=== PATIENT | female | born 1960 | race Caucasian/White ===

== ENCOUNTER 2021-08-22 11:12 | Emergency (ER) | payer OTHER, MEDICAID, SELFPAY ==
[2021-08-22] VITALS (9 sets, daily range): BP systolic 95–128; BP diastolic 62–77; PULSE 74–92; RESP 14; TEMP 36.5; O2SAT 97–100; BMI 24.7
[2021-08-22 11:40] LABS: Add Manual Diff / Slide Review NO; Basophils Absolute Auto 0 /uL (0-100); Basophils Percent Auto 0.2 % (0-2); Eosinophils Absolute Auto 0 /uL (0-450); Eosinophils Percent Auto 1.3 % (2-4); Hematocrit 26.8 % (36-46); Hemoglobin 9.1 g/dL (12.0-16.0); Lymphocytes Absolute Auto 600 /uL (1100-4500); Mean Corpuscular HGB Conc 33.9 % (30-36); Mean Corpuscular Hemoglobin 28.8 PG (26-34); Monocytes Absolute Auto 300 /uL (0-900); Monocytes Percent Auto 12.4 % (3-14); Neutrophils Absolute Auto 1400 /uL (1500-7000); Neutrophils Percent Auto 61.1 % (50-75); Platelet Count 149 X10^3/uL (150-400); Red Blood Cell Count 3.16 X10^6/uL (4.0-5.2); Red Cell Distribution Width 14.8 % (11.6-14.8); White Blood Cell Count 2.3 X10^3/uL (4.5-11.0)
[2021-08-22 11:45] LABS: INR 1.2 (0.9-1.3); Prothrombin Time 13.1 SECONDS (10.1-12.7)
[2021-08-22 11:48] LABS: PTT Partial Thromboplastin Tim 30 SECONDS (26.4-36.2)
--- NOTE | 2021-08-22 11:49 | PC.NURSE ---
Pt with h/o Glioblastoma and recent craniotomy at [facility]. has been going through oral chemo and had blood transfusion yesterday at [facility]. states the inside of her anus feels ulcerated and is bleeding.
[2021-08-22 11:55] LABS: Alanine Aminotransferase 29 IU/L (<35); Albumin 4.1 g/dL (3.5-5.0); Albumin Globulin Ratio 1.3 (1.0-2.8); Alkaline Phosphatase 67 U/L (38-126); Aspartate Aminotransferase 24 IU/L (14-36); Bilirubin Total 0.7 mg/dL (0.2-1.3); Blood Urea Nitrogen 14 mg/dL (7-17); Calcium 9.3 mg/dL (8.4-10.2); Carbon Dioxide 27 mmol/L (22-32); Chloride 108 mmol/L (98-107); Estimated Glomerular Filt Rate > 60.0 mL/min (>60); Globulin 3.1 g/dL (1.7-4.1); Glucose 102 mg/dL (80-110); HEMOLYSIS < 15 (0-50); Potassium 4.3 mmol/L (3.4-5.1); Sodium 140 mmol/L (137-145); Total Protein 7.2 g/dL (6.3-8.2)
--- NOTE | 2021-08-22 12:34 | ED_ITS ---
HPI - GI Bleed <Devin Sánchez PA-C - Last Filed: 08/22/21 14:25> General Chief complaint: GI Bleed Stated complaint: RECTAL BLEEDING POST CA TREATMENT & BLOOD TRANSFUS Time Seen by Provider: 08/22/21 12:01 Source: patient Mode of arrival: Ambulatory Limitations: no limitations History of Present Illness HPI Narrative: 61-year-old female with a history of AFib, glioblastoma presents to the ED with 1 day of rectal bleeding. Patient states that she had a resection for the glioblastoma in January 2021, followed by oral chemo and radiation that ended in the beginning of May. Patient endorses ongoing constipation over the last few months, sporadic rectal bleeds. Patient has been advised by her oncologist to take stool softeners, fiber to avoid constipation and prevent bleeds. Patient also states that she has been anemic since her cancer treatments for which she has received a few transfusions. The last transfusion she got was yesterday at [facility] due to a 6.4 hemoglobi n, she was transfused with 2 units. Patient denies fever, chills, shortness of breath, cough, nausea, vomiting, abdominal pain, lightheadedness, dizziness, syncope. Patient also endorses some chest tightness that she started feeling yesterday. Patient describes the chest pain as substernal, feeling of tightness in pressure, some burning. Patient has a prior history of GERD, but says this burning sensation is different than what she has felt in the past. Patient does not take blood thinners for her AFib, takes aspirin 81 daily. Related Data Home Medications Medication Instructions Recorded Confirmed ASPIRIN (Aspir-Low) 81 mg PO Q DAY #0 10/25/12 08/22/21 hydrochlorothiazide 25 mg tablet 25 mg PO QDAY #0 10/25/12 DILTIAZEM HCL (Diltzac ER) 120 mg PO QDAY #0 12/08/12 08/22/21 Previous Rx's Medication Instructions Recorded phenazopyridine 100 mg tablet 100 mg PO TID #14 12/08/12 nitrofurantoin 100 mg PO BIDCC #14 01/22/13 monohydrate/macrocrystals 100 mg capsule (Macrobid) Allergies Allergy/AdvReac Type Severity Reaction Status Date / Time codeine Allergy Verified 08/22/21 11:22 Review of Systems <Devin Sánchez PA-C - Last Filed: 08/22/21 14:25> Constitutional Constitutional: Denies chills, Denies fatigue, Denies fever(s), Denies frequent falls, Denies lethargy and Denies weakness Eyes Eyes: Denies change in vision, Denies eye discharge, Denies irritation and Denies loss of vision ENT Ears, Nose, Mouth, and Throat: Denies change in voice, Denies dizziness, Denies neck pain, Denies sore throat and Denies throat swelling Cardiovascular Cardiovascular: Reports chest pain, Denies irregular heart rhythm, Denies lightheadedness, Denies palpitations, Denies dyspnea, Denies dyspnea on exertion and Denies orthopnea Respiratory Respiratory: Denies cough, Denies dyspnea, Denies dyspnea on exertion and Denies wheezing Gastrointestinal Gastrointestinal: Denies abdominal pain, Reports hematochezia, Denies change in bowel habits, Reports constipation, Denies diarrhea, Denies nausea and Denies vomiting Musculoskeletal Musculoskeletal: Denies neck pain and Denies numbness Integumentary/Breasts Skin/Breast: Denies pruritus, Denies erythema, Denies rash and Denies wounds Neurologic Neurologic: Denies behavioral changes, Denies confusion, Denies dizziness, Denies frequent falls, Denies loss of vision, Denies numbness and Denies weakness Psychiatric Psychiatric: Denies anxiety, Denies behavioral changes, Denies confusion, Denies depression, Denies homicidal ideation and Denies suicidal ideation Endocrine Endocrine: Denies fatigue, Denies flushing and Denies palpitations Hematologic/Lymphatic Hematologic/Lymphatic: Denies easy bruising Allergic/Immunologic Allergic/Immunologic: Denies urticaria, Denies throat swelling and Denies wheezing Patient History <Devin Sánchez PA-C - Last Filed: 08/22/21 14:25> Social History Smoking Status: Unknown if ever smoked Smoking Status: Unknown if ever smoked alcohol intake frequency: holidays/special occasions only Substance Use Type: does not use Exam <Devin Sánchez PA-C - Last Filed: 08/22/21 14:25> Initial Vital Signs Initial Vital Signs: Vital Signs Temperature 97.7 F 08/22/21 11:17 Pulse Rate 83 08/22/21 11:17 Respiratory Rate 14 08/22/21 11:17 Blood Pressure 117/71 08/22/21 11:17 Pulse Oximetry 97 08/22/21 11:17 Const General: cooperative [facility] Head: normocephalic and atraumatic Ears: external ears normal and TM's normal bilaterally Nose: external nose normal and No nasal discharge Face and sinus: sinuses nontender, face symmetric, no sinus tenderness and No dry mucous membranes Mouth: oral mucosae normal and moist mucous membranes Teeth and gingiva: dentition normal Throat: tonsils normal and uvula midline Eyes General: appearance normal, both eyes and all related structures Eyelids: eyelids normal Conjunctivae: conjunctivae normal Sclera: sclerae normal Pupils: PERRL EOM: EOM intact bilaterally Neck Neck: normal visual inspection, trachea midline, No lymphadenopathy, No midline deformity and No JVD Lymphatic: No lymphedema Chest Chest: normal inspection of the chest Resp Effort & Inspection: normal respiratory effort, able to speak in complete sentences, no respiratory distress and no use of accessory muscles Auscultation: clear to auscultation bilaterally, no rales, no rhonchi and no wheezes Cardio Rate: regular rate Rhythm: regular rhythm Heart Sounds: no click, no gallops, no murmurs and no rubs Pulses: normal peripheral pulses GI Inspection: non-distended Palpation: soft, no hepatosplenomegaly, No guarding, No pulsatile mass and No tender Auscultation: normal bowel sounds Rectal Exam: hemorrhoids Other: Rectal exam deferred due to patient's immunocompromised status. External visual exam shows external hemorrhoids. No gross signs of bleeding. Abdomen soft, nondistended, nontender to palpation Back/Spine/Pelvis Back: No CVA tenderness Cervical Spine: cervical ROM normal and No pain with cervical ROM Thoracic/Lumbar Spine: thoracic and lumbar spine normal to inspection Skin General: no rashes or lesions noted, No jaundice and No petechiae Neuro General: patient alert, patient oriented x3, gait normal and no focal motor deficits Speech: speech normal Extrem General: full ROM, no clubbing, cyanosis or edema, no pedal edema and no calf tenderness Psych Appearance: well kempt Mental Status: mental status grossly normal Attitude: cooperative Thought Content: normal and suicidality Judgment: judgment good <Ronnie Harrison DO - Last Filed: 08/22/21 14:49> Initial Vital Signs Initial Vital Signs: Vital Signs Temperature 97.7 F 09/21/21 11:17 Pulse Rate 83 08/22/21 11:17 Respiratory Rate 14 08/22/21 11:17 Blood Pressure 117/71 08/22/21 11:17 Pulse Oximetry 97 08/22/21 11:17 Course <Devin Sánchez PA-C - Last Filed: 08/22/21 14:25> Course Course Narrative: H/H 9.1/26.8, which appears stable and consistent with 2 units that the patient was transfused with yesterday. Trop negative, ACS workup negative. Most likely cause of rectal bleeding is the patient has hemorrhoids which were visible on physical exam. Will discharge patient home with ED return precautions, GI follow-up, laxatives for prevention of constipation. Orders Ordered: ED Orders 08/22/21 11:22 EKG-12 Lead Stat 08/22/21 11:25 Complete Blood Count AUTO DIFF Stat Comprehensive Metabolic Panel Stat Partial Thromboplastin Time Stat Prothrombin Time INR Stat Troponin & CK Cardiac Panel Stat Type and Screen Stat 08/22/21 13:00 XR chest 1V Stat Discontinued Medications Al Hydrox/Mg Hydrox/Simethicone (Mag Hydrox/Alum/Simeth 30 Ml Udc) 30 ml PO NOW ONE Stop: 08/22/21 13:39 Last Admin: 08/22/21 13:40 Dose: 30 ml Documented by: ROSHAN Al Hydrox/Mg Hydrox/Simethicone 20 ml/ Lidocaine HCl 15 ml 0 ml PO NOW ONE Stop: 08/22/21 13:13 Last Admin: 08/22/21 13:39 Dose: Not Given Documented by: ROSHAN Famotidine (Famotidine 20 Mg/2 Ml Vial) 20 mg IV NOW JIMMIE Vital Signs Vital signs: Vital Signs - 8 hr 08/22/21 11:17 08/22/21 11:19 08/22/21 11:30 Temperature 97.7 F Pulse Rate 83 82 86 Respiratory Rate 14 Blood Pressure 117/71 117/71 106/64 Pulse Oximetry 97 100 100 08/22/21 12:00 08/22/21 12:30 08/22/21 12:31 Temperature Pulse Rate 74 74 81 Respiratory Rate Blood Pressure 95/64 112/62 Pulse Oximetry 100 100 100 08/22/21 13:00 08/22/21 13:30 08/22/21 14:00 Temperature Pulse Rate 87 92 H 84 Respiratory Rate Blood Pressure 103/62 121/74 128/77 Pulse Oximetry 100 100 100 <Ronnie Harrison DO - Last Filed: 08/22/21 14:49> Orders Ordered: ED Orders 08/22/21 11:22 EKG-12 Lead Stat 08/22/21 11:25 Complete Blood Count AUTO DIFF Stat Comprehensive Metabolic Panel Stat Partial Thromboplastin Time Stat Prothrombin Time INR Stat Troponin & CK Cardiac Panel Stat Type and Screen Stat 08/22/21 13:00 XR chest 1V Stat Discontinued Medications Al Hydrox/Mg Hydrox/Simethicone (Mag Hydrox/Alum/Simeth 30 Ml Udc) 30 ml PO NOW ONE Stop: 08/22/21 13:39 Last Admin: 08/22/21 13:40 Dose: 30 ml Documented by: ROSHAN Al Hydrox/Mg Hydrox/Simethicone 20 ml/ Lidocaine HCl 15 ml 0 ml PO NOW ONE Stop: 08/22/21 13:13 Last Admin: 08/22/21 13:39 Dose: Not Given Documented by: ROSHAN Famotidine (Famotidine 20 Mg/2 Ml Vial) 20 mg IV NOW [facility] Vital Signs Vital signs: Vital Signs - 8 hr 08/22/21 11:17 08/22/21 11:19 08/22/21 11:30 Temperature 97.7 F Pulse Rate 83 82 86 Respiratory Rate 14 Blood Pressure 117/71 117/71 106/64 Pulse Oximetry 97 100 100 08/22/21 12:00 08/22/21 12:30 08/22/21 12:31 Temperature Pulse Rate 74 74 81 Respiratory Rate Blood Pressure 95/64 112/62 Pulse Oximetry 100 100 100 08/22/21 13:00 08/22/21 13:30 08/22/21 14:00 Temperature Pulse Rate 87 92 H 84 Respiratory Rate Blood Pressure 103/62 121/74 128/77 Pulse Oximetry 100 100 100 MDM - GI Bleed <Devin Sánchez PA-C - Last Filed: 08/22/21 14:25> Medical Records Attestation: I reviewed the patient's medical records. Lab Data Attestation: I reviewed the patient's lab results. Lab results narrative: H/H 9.1/26.8. Trop negative Result diagrams: 08/22/21 11:25 08/22/21 11:25 Labs: Lab Results 08/22/21 08/22/21 08/22/21 Range/Units 11:25 11:25 11:25 WBC 2.3 L (4.5-11.0) X10^3/uL RBC 3.16 L (4.0-5.2) X10^6/uL Hgb 9.1 L (12.0-16.0) g/dL Hct 26.8 L (36-46) % MCV 85.0 (80-100) fL MCH 28.8 (26-34) PG MCHC 33.9 (30-36) % RDW 14.8 (11.6-14.8) % Plt Count 149 L (150-400) X10^3/uL Neut % (Auto) 61.1 (50-75) % Lymph % (Auto) 25.0 (25-40) % Anderson % (Auto) 12.4 (3-14) % Eos % (Auto) 1.3 L (2-4) % Baso % (Auto) 0.2 (0-2) % Neut # (Auto) 1400 L (3104-3278) /uL Lymph # (Auto) 600 L (1801-9646) /uL Anderson # (Auto) 300 (0-900) /uL Eos # (Auto) 0 (0-450) /uL Baso # (Auto) 0 (0-100) /uL PT 13.1 H (10.1-12.7) SECONDS INR 1.2 (0.9-1.3) APTT 30 (26.4-36.2) SECONDS Sodium 140 (137-145) mmol/L Potassium 4.3 (3.4-5.1) mmol/L Chloride 108 H (98-107) mmol/L Carbon Dioxide 27 (22-32) mmol/L BUN 14 (7-17) mg/dL Creatinine 0.70 (0.52-1.04) mg/dL Estimated GFR > 60.0 (>60) mL/min BUN/Creatinine Ratio 20.0 (6-22) Glucose 102 (80-110) mg/dL Calcium 9.3 (8.4-10.2) mg/dL Total Bilirubin 0.7 (0.2-1.3) mg/dL AST 24 (14-36) IU/L ALT 29 (<35) IU/L Alkaline Phosphatase 67 (38-126) U/L Total Creatine Kinase (30-135) U/L CK-MB (CK-2) CK-MB (CK-2) Rel Index Troponin I (0.01-0.034) ng/mL Total Protein 7.2 (6.3-8.2) g/dL Albumin 4.1 (3.5-5.0) g/dL Globulin 3.1 (1.7-4.1) g/dL Albumin/Globulin Ratio 1.3 (1.0-2.8) Blood Type Antibody Screen 08/22/21 08/22/21 Range/Units 11:25 11:25 WBC (4.5-11.0) X10^3/uL RBC (4.0-5.2) X10^6/uL Hgb (12.0-16.0) g/dL Hct (36-46) % MCV (80-100) fL MCH (26-34) PG MCHC (30-36) % RDW (11.6-14.8) % Plt Count (150-400) X10^3/uL Neut % (Auto) (50-75) % Lymph % (Auto) (25-40) % Anderson % (Auto) (3-14) % Eos % (Auto) (2-4) % Baso % (Auto) (0-2) % Neut # (Auto) (4229-0808) /uL Lymph # (Auto) (0669-2424) /uL Anderson # (Auto) (0-900) /uL Eos # (Auto) (0-450) /uL Baso # (Auto) (0-100) /uL PT (10.1-12.7) SECONDS INR (0.9-1.3) APTT (26.4-36.2) SECONDS Sodium (137-145) mmol/L Potassium (3.4-5.1) mmol/L Chloride (98-107) mmol/L Carbon Dioxide (22-32) mmol/L BUN (7-17) mg/dL Creatinine (0.52-1.04) mg/dL Estimated GFR (>60) mL/min BUN/Creatinine Ratio (6-22) Glucose (80-110) mg/dL Calcium (8.4-10.2) mg/dL Total Bilirubin (0.2-1.3) mg/dL AST (14-36) IU/L ALT (<35) IU/L Alkaline Phosphatase (38-126) U/L Total Creatine Kinase 32 (30-135) U/L CK-MB (CK-2) TNP CK-MB (CK-2) Rel Index TNP Troponin I < 0.012 (0.01-0.034) ng/mL Total Protein (6.3-8.2) g/dL Albumin (3.5-5.0) g/dL Globulin (1.7-4.1) g/dL Albumin/Globulin Ratio (1.0-2.8) Blood Type B Positive Antibody Screen Negative Imaging Data Chest x-ray: Radiologist's Impression: PROCEDURE:? XR CHEST 1V ? INDICATIONS:? r/o ACS ? TECHNIQUE:? One view of the chest was acquired.? ? COMPARISON:? [facility], CR, XR CHEST 2 VIEWS, 06/13/2021, 12:13. ? FINDINGS:? ? Surgical changes and devices:? None.? ? Lungs and pleura:? Lungs are clear.? No pleural effusions or pneumothorax.? ? Mediastinum:? Mediastinal contours appear normal.? Heart size is normal.? ? Bones and chest wall:? No suspicious bony lesions.? Overlying soft tissues appear unremarkable.? ? IMPRESSION:? No acute cardiopulmonary abnormality. ? ? Dictated by: Denton Mendez M.D. on 08/22/2021 at 13:19 ? ? Approved by: Denton Mendez M.D. on 08/22/2021 at 13:20 ? ECG Data Interpretation: EKG shows atrial fibrillation, no ST T changes, no axis deviat ion. No tachycardia. MDM Narrative Medical decision making narrative: 61-year-old female with a history of AFib, glioblastoma presents to the ED with 1 day of rectal bleeding. Concern for ACS versus GERD versus gastritis versus anemia versus hemorrhoids. Will order EKG, chest x-ray, troponin, labs, type and screen Will give GI cocktail, Pepcid. Will reassess. <Ronnie Harrison, - Last Filed: 08/22/21 14:49> Lab Data Labs: Lab Results 09/21/21 09/21/21 09/21/21 Range/Units 11:25 11:25 11:25 WBC 2.3 L (4.5-11.0) X10^3/uL RBC 3.16 L (4.0-5.2) X10^6/uL Hgb 9.1 L (12.0-16.0) g/dL Hct 26.8 L (36-46) % MCV 85.0 (80-100) fL MCH 28.8 (26-34) PG MCHC 33.9 (30-36) % RDW 14.8 (11.6-14.8) % Plt Count 149 L (150-400) X10^3/uL Neut % (Auto) 61.1 (50-75) % Lymph % (Auto) 25.0 (25-40) % Anderson % (Auto) 12.4 (3-14) % Eos % (Auto) 1.3 L (2-4) % Baso % (Auto) 0.2 (0-2) % Neut # (Auto) 1400 L (1646-1072) /uL Lymph # (Auto) 600 L (4603-3470) /uL Anderson # (Auto) 300 (0-900) /uL Eos # (Auto) 0 (0-450) /uL Baso # (Auto) 0 (0-100) /uL PT 13.1 H (10.1-12.7) SECONDS INR 1.2 (0.9-1.3) APTT 30 (26.4-36.2) SECONDS Sodium 140 (137-145) mmol/L Potassium 4.3 (3.4-5.1) mmol/L Chloride 108 H (98-107) mmol/L Carbon Dioxide 27 (22-32) mmol/L BUN 14 (7-17) mg/dL Creatinine 0.70 (0.52-1.04) mg/dL Estimated GFR > 60.0 (>60) mL/min BUN/Creatinine Ratio 20.0 (6-22) Glucose 102 (80-110) mg/dL Calcium 9.3 (8.4-10.2) mg/dL Total Bilirubin 0.7 (0.2-1.3) mg/dL AST 24 (14-36) IU/L ALT 29 (<35) IU/L Alkaline Phosphatase 67 (38-126) U/L Total Creatine Kinase (30-135) U/L CK-MB (CK-2) CK-MB (CK-2) Rel Index Troponin I (0.01-0.034) ng/mL Total Protein 7.2 (6.3-8.2) g/dL Albumin 4.1 (3.5-5.0) g/dL Globulin 3.1 (1.7-4.1) g/dL Albumin/Globulin Ratio 1.3 (1.0-2.8) Blood Type Antibody Screen 08/22/21 08/22/21 Range/Units 11:25 11:25 WBC (4.5-11.0) X10^3/uL RBC (4.0-5.2) X10^6/uL Hgb (12.0-16.0) g/dL Hct (36-46) % MCV (80-100) fL MCH (26-34) PG MCHC (30-36) % RDW (11.6-14.8) % Plt Count (150-400) X10^3/uL Neut % (Auto) (50-75) % Lymph % (Auto) (25-40) % Anderson % (Auto) (3-14) % Eos % (Auto) (2-4) % Baso % (Auto) (0-2) % Neut # (Auto) (5032-8858) /uL Lymph # (Auto) (5392-3609) /uL Anderson # (Auto) (0-900) /uL Eos # (Auto) (0-450) /uL Baso # (Auto) (0-100) /uL PT (10.1-12.7) SECONDS INR (0.9-1.3) APTT (26.4-36.2) SECONDS Sodium (137-145) mmol/L Potassium (3.4-5.1) mmol/L Chloride (98-107) mmol/L Carbon Dioxide (22-32) mmol/L BUN (7-17) mg/dL Creatinine (0.52-1.04) mg/dL Estimated GFR (>60) mL/min BUN/Creatinine Ratio (6-22) Glucose (80-110) mg/dL Calcium (8.4-10.2) mg/dL Total Bilirubin (0.2-1.3) mg/dL AST (14-36) IU/L ALT (<35) IU/L Alkaline Phosphatase (38-126) U/L Total Creatine Kinase 32 (30-135) U/L CK-MB (CK-2) TNP CK-MB (CK-2) Rel Index TNP Troponin I < 0.012 (0.01-0.034) ng/mL Total Protein (6.3-8.2) g/dL Albumin (3.5-5.0) g/dL Globulin (1.7-4.1) g/dL Albumin/Globulin Ratio (1.0-2.8) Blood Type B Positive Antibody Screen Negative Discharge Plan Departure Patient Disposition: Home Clinical Impression: Rectal bleed Instructions: DI for Rectal Bleeding Activity Restrictions/Additional Instructions: You were evaluated in the ED today for rectal bleeding and chest pressure. EKG the, chest x-ray, troponin were all normal. You hematocrit and hemoglobin appears stable as well. Your hemoglobin today was 9.1, which is not an indication for a transfusion. Please follow-up with a GI doctor for the rectal bleeding. The most likely cause of your rectal bleed could be the hemorrhoids, constipation. You can take MiraLax daily to avoid constipation, hemorrhoids, rectal bleeding. Continue to drink lots of water to stay hydrated. To the ED if the bleeding worsens, you experience worsening chest pain, shortness of breath. Prescriptions: No Action ASPIRIN (Aspir-Low) 81 mg PO Q DAY Qty: 0 RF: 0 hydrochlorothiazide 25 MG tablet 25 mg PO QDAY Qty: 0 RF: 0 DILTIAZEM HCL (Diltzac ER) 120 mg PO QDAY Qty: 0 RF: 0 phenazopyridine 100 MG tablet 100 mg PO TID Qty: 14 RF: 0 nitrofurantoin monohyd/m-cryst [Macrobid] 100 MG capsule 100 mg PO BIDCC Qty: 14 RF: 0 <Ronnie Harrison, DO - Last Filed: 08/22/21 14:49> Cosign ED Attending Cosignature Attestation: Dr Harrison Co-Sign Statement: I was available for consultation during this patient's emergency department visit. This chart is signed by myself for administrative purposes only. I did not have direct contact with this patient during this visit. They were seen independently by the APC.
--- NOTE | 2021-08-22 13:00 | DI.RAD.S_ITS ---
PROCEDURE: XR CHEST 1V INDICATIONS: r/o ACS TECHNIQUE: One view of the chest was acquired. COMPARISON: [facility], CR, XR CHEST 2 VIEWS, 06/13/2021, 12:13. FINDINGS: Surgical changes and devices: None. Lungs and pleura: Lungs are clear. No pleural effusions or pneumothorax. Mediastinum: Mediastinal contours appear normal. Heart size is normal. Bones and chest wall: No suspicious bony lesions. Overlying soft tissues appear unremarkable. IMPRESSION: No acute cardiopulmonary abnormality. Dictated by: Denton Mendez M.D. on 08/22/2021 at 13:19 Approved by: Denton Mendez M.D. on 08/22/2021 at 13:20
[2021-08-22 13:24] LABS: Creatine Kinase 32 U/L (30-135)
[2021-08-22 13:37] LABS: Troponin I < 0.012 ng/mL (0.01-0.034)
[2021-08-22] MEDS: MAG HYDROX/ALUM/SIMETH 30 ML UDC PO (13:40)
== END 2021-08-22 14:14 | disposition home or self-care (01) ==
PROVIDERS: Emergency Medicine; Emergency Provider Student in an Organized Health Care Education/Training Program
DX: K62.5 Hemorrhage of anus and rectum (principal); R07.9 Chest pain, unspecified; Z79.82 Long term (current) use of aspirin
CPT/HCPCS: 36415; 71045; 80053; 82550; 84484; 85025; 85610; 85730; 86850; 86900; 86901; 93005; 93010; 99284

== ENCOUNTER 2022-11-12 07:48 | Inpatient (IN) | payer OTHER, MEDICAID, SELFPAY ==
[2022-11-12] VITALS (82 sets, daily range): BP systolic 73–125; BP diastolic 42–77; PULSE 76–143; RESP 9–41; TEMP 36.2; O2SAT 94–99; BMI 18.8
--- NOTE | 2022-11-12 08:04 | DI.CT.S_ITS ---
PROCEDURE: CT ABDOMEN PELVIS W CON INDICATIONS: Left upper quadrant pain and cancer TECHNIQUE: After the administration of intravenous contrast, axial sections acquired from the lung bases to the pubic symphysis. Coronal and sagittal reformats were performed. For radiation dose reduction, the following was used: automated exposure control, adjustment of mA and/or kV according to patient size. COMPARISON: [facility], CT, CT HEAD/BRAIN WO/W CON, 11/12/2022, 9:32. [facility], MR, MR BRAIN WITH/WITHOUT CONTRAST, 11/06/2022, 12:01. [facility], CT, CT ANGIO CHEST PE PROTOCOL, 11/12/2022, 9:32. FINDINGS: Image quality: Excellent. Lung bases: Posterior basal segment right lower lobe pulmonary embolus. Patchy bibasilar pneumonia, left greater than right. Small bilateral pleural effusions, left greater than right.. Heart: Four-chamber cardiomegaly, mild to moderate pericardial effusion. ABDOMEN: Liver: Unremarkable. Gallbladder: Unremarkable. Biliary ducts: Unremarkable. Pancreas: Unremarkable. Spleen: Unremarkable. Adrenal Glands: Unremarkable. Kidneys and Ureters: 6 mm upper pole left renal stone, nonobstructive. No renal mass or hydronephrosis. Stomach and Bowel: Stomach, small bowel loops, and colon are unremarkable. Peritoneum: Mild pelvic ascites. No free air. Ventral Wall: No hernias. Abdominal Nodes: No retroperitoneal or mesenteric adenopathy by size criteria. Vessels: Aorta and inferior vena cava are normal in size. PELVIS: Pelvic Organs: Unremarkable. Bladder: Unremarkable. Pelvic Nodes: No enlarged lymph nodes. Miscellaneous: No hernias are seen. Bones: Mild age indeterminate T12 superior endplate compression fracture. IMPRESSION: 1. Right basilar acute pulmonary embolus. 2. Patchy bibasilar pneumonia, left greater than right. 3. Small bilateral pleural effusions, left greater than right. 4. Four-chamber cardiomegaly, mild to moderate pericardial effusion. 5. Nonobstructing left renal stone. 6. Mild pelvic ascites. 7. Age indeterminate mild T12 compression fracture. Dictated by: Arnaud Griffin M.D. on 11/12/2022 at 10:17 Approved by: Arnaud Griffin M.D. on 11/12/2022 at 10:23
--- NOTE | 2022-11-12 08:04 | DI.CT.S_ITS ---
PROCEDURE: CT ANGIO CHEST PE PROTOCOL INDICATIONS: Short of breath left-sided pain TECHNIQUE: After the administration of intravenous contrast, 2 mm thick sections acquired from the pulmonary apices to the posterior costophrenic angles. 3-dimensional maximum intensity projection (MIP) coronal and sagittal reformats were then acquired through the thorax. For radiation dose reduction, the following was used: automated exposure control, adjustment of mA and/or kV according to patient size. COMPARISON: None. FINDINGS: Image quality: Excellent. Pulmonary arteries: There is acute embolus involving the posterior basal segment of right lower lobe pulmonary artery. No other pulmonary artery emboli are identified. Lungs and pleura: There is a mild to moderate left pleural effusion and mild right pleural effusion. Bibasilar consolidation, left greater than right, is consistent with bibasilar pneumonia. Mediastinum: 4 four-chamber cardiomegaly. [id number] pericardial effusion. No mediastinal or hilar adenopathy. Thoracic aorta is normal in caliber and enhancement. Esophagus is normal in caliber, without hiatal hernia. Bones and chest wall: No suspicious bony lesions. Ribs and thoracic spine appear intact throughout. Thyroid gland is grossly unremarkable. No axillary or supraclavicular adenopathy. Abdomen: Visualized upper abdominal solid organs appear normal in the early arterial phase of enhancement. IMPRESSION: 1. Focal acute pulmonary embolus, posterior basal segment of right lower lobe pulmonary artery. 2. Bibasilar pneumonia, left greater than right, bilateral pleural effusions, left greater than right. 3. Four-chamber cardiomegaly, mild to moderate pericardial effusion. Dictated by: Arnaud Griffin M.D. on 11/12/2022 at 10:12 Approved by: Arnaud Griffin M.D. on 11/12/2022 at 10:17
--- NOTE | 2022-11-12 08:04 | DI.CT.S_ITS ---
PROCEDURE: CT HEAD/BRAIN WO/W CON INDICATIONS: glioblastoma, left paresis TECHNIQUE: 4.5 mm thick angled axial sections acquired from the foramen magnum to the vertex both before and after the administration of intravenous contrast, with coronal and sagittal reformats. For radiation dose reduction, the following was used: automated exposure control, adjustment of mA and/or kV according to patient size. COMPARISON: [facility], MR, MR BRAIN WITH/WITHOUT CONTRAST, 11/06/2022, 12:01. FINDINGS: Image quality: Excellent. CSF spaces: Basal cisterns are patent. No extra-axial fluid collections. Ventricles are symmetric in size and shape. Brain: Today CT findings correlate with the MRI from 6 days ago. There is abnormal enhancement present in the region of the right head of caudate and adjacent deep white matter and right lenticulostriate . There is low-density correlating with an area peripheral enhancement on the recent MRI in the deep white matter lateral to the right lateral ventricle period No midline shift. There is no evidence of interval change since the recent MRI. No evidence of interval hemorrhage or interval infarct. Right temporal encephalomalacia, likely indicating previous tumor resection. No abnormal intracranial enhancement. There is cerebral volume loss for age. There is periventricular white matter chronic small vessel ischemic change. There is intracranial internal carotid artery atherosclerosis. Skull and face: Calvarium and visualized facial bones appear intact, without suspicious lesions. Sinuses: Visualized sinuses and mastoids are clear. IMPRESSION: Findings are unchanged from the recent prior MRI. There is ill-defined enhancing tumor in the right cerebral hemisphere. There is no interval infarct and no interval hemorrhage. Dictated by: Arnaud Griffin M.D. on 11/12/2022 at 10:03 Approved by: Arnaud Griffin M.D. on 11/12/2022 at 10:12
--- NOTE | 2022-11-12 08:05 | DI.RAD.S_ITS ---
PROCEDURE: XR CHEST 1V INDICATIONS: chest pain TECHNIQUE: One view of the chest was acquired. COMPARISON: [facility], CR, XR CHEST 1V, 08/22/2021, 13:02. FINDINGS: Surgical changes and devices: None. Lungs and pleura: Left basilar atelectasis versus infiltrate. No pleural effusions or pneumothorax. Mediastinum: Mediastinal contours appear normal. Heart size is normal. Bones and chest wall: No suspicious bony lesions. Overlying soft tissues appear unremarkable. IMPRESSION: Left basilar atelectasis versus infiltrate. Comment: Progress films are recommended until clear. Dictated by: Arnaud Griffin M.D. on 11/12/2022 at 8:39 Approved by: Arnaud Griffin M.D. on 11/12/2022 at 8:40
[2022-11-12 08:15] LABS: INR 1.2 (0.9-1.3); Prothrombin Time 13.2 SECONDS (10.1-12.7)
--- NOTE | 2022-11-12 08:15 | ED_ITS ---
HPI - Abdominal Pain General Chief Complaint: Abdominal Pain Stated Complaint: LUQ abd pain, brain tumor injection on saturday Time Seen by Provider: 11/12/22 08:01 Source: EMS Mode of arrival: EMS History of Present Illness HPI narrative: Patient is a 62-year-old female history of atrial fibrillation, glioblastoma with left-sided weakness presenting today with left upper quadrant pain. She is getting Avastin treatments she had some chemo and radiation done [facility] where she gets most of her care. She had an Avastin effusion recently since then she is had increased all over body pain yesterday starting some having left upper quadrant pain. She feels short of breath due to the pain in her left upper quadrant. She has not had any fever but she says she is just getting over influenza a. She is not currently on anticoagulation for atrial fibrillation due to the significant swelling in her brain. She received 100 mcg of fentanyl with EMS. Related Data Home Medications Medication Instructions Recorded Confirmed DILTIAZEM HCL (Diltzac ER) 120 mg PO QDAY ##0 12/08/12 02/25/22 Allergies Allergy/AdvReac Type Severity Reaction Status Date / Time acetaminophen Allergy Rash Verified 11/12/22 18:31 cephalexin Allergy Hives Verified 11/12/22 18:31 ciprofloxacin Allergy Hives Verified 11/12/22 18:31 codeine Allergy ITCHING Verified 11/12/22 08:02 diazepam Allergy Verified 11/12/22 18:31 Gadolinium-Containing Allergy Verified 11/12/22 18:31 Contrast Medi morphine Allergy ITCHING Verified 11/12/22 08:02 piperacillin [From Zosyn] Allergy Rash Verified 11/12/22 17:45 Sulfa (Sulfonamide Allergy Verified 11/12/22 18:31 Antibiotics) tazobactam [From Zosyn] Allergy Rash Verified 11/12/22 17:45 timolol Allergy Verified 11/12/22 18:31 amoxicillin [From Augmentin] AdvReac Diarrhea Verified 11/12/22 18:31 clavulanic acid AdvReac Diarrhea Verified 11/12/22 18:31 [From Augmentin] epinephrine AdvReac Verified 11/12/22 18:31 Influenza Virus Vaccines AdvReac Verified 11/12/22 18:31 omeprazole AdvReac Verified 11/12/22 18:31 valacyclovir AdvReac Palpitation Verified 11/12/22 18:31 s Review of Systems Review of Systems Narrative: GENERAL: Denies chills, fatigue, malaise, fever, sweats, travel HEENT: Denies sinus pain, ear pain, sore throat, difficulty swallowing, neck pain RESPIRATORY: Denies dyspnea, cough, wheezing, hemoptysis, sputum. CARDIOVASCULAR: See HPI GASTROINTESTINAL: See HPI : Denies dysuria, frequency, incontinence, hematuria, urinary retention, flank pain. MUSCULOSKELETAL: Denies weakness, joint pain, or bony pain SKIN: No rash, no erythema, no pruritus NEUROLOGIC: See HPI PSYCHIATRIC: No concerning psychosocial issues. 12 point review of systems is negative except for those stated above and HPI Patient History Medical History (Updated 11/12/22 @ 18:35 by Karla Morfin DO) Chronic atrial fibrillation with RVR Glioblastoma Seizure Social History Smoking Status: Never smoker Smoking Status: Never smoker alcohol intake frequency: holidays/special occasions only Substance Use Type: does not use Exam Initial Vital Signs Initial Vital Signs: Vital Signs Temperature 97.1 F L 11/12/22 07:22 Pulse Rate 106 H 11/12/22 07:22 Respiratory Rate 16 11/12/22 07:22 Blood Pressure 123/77 11/12/22 07:22 Pulse Oximetry 96 11/12/22 07:22 Oxygen Delivery Method 11/12/22 07:22 GENERAL: Alert pleasant 62-year-old female appears uncomfortable HEENT: Head atraumatic,EOMI, pupils reactive, face symmetric, moist mucous membranes CARDIOVASCULAR: Irregularly irregular no murmur RESPIRATORY: Breath sounds equal bilaterally, no wheezes rales or rhonchi. ABDOMEN: Soft, tender left upper quadrant EXTREMITIES: Normal range of motion, no clubbing or edema. Neurovascularly intact NEUROLOGICAL: Alert and oriented x4 left-sided weakness arm contracted SKIN: Warm, dry, no laceration, no petechiae, no rashes or lesions. Course Orders Ordered: ED Orders 11/12/22 10:56 Consult to [employer] - Dental Resident Stat 11/12/22 12:03 COVID19 -Nasal RAPID/Pre-Proc Stat 11/12/22 13:53 Urine Microscopic Stat Dexamethasone (Dexamethasone 1 Mg Tablet) 2 mg PO DAILY JIMMIE Diltiazem HCl (Diltiazem 30 Mg Tablet) 30 mg PO BID PRN PRN Reason: HR > 115 Sodium Chloride (Normal Saline 0.9%) 1,000 mls @ 100 mls/hr IV CONT JIMMIE Last Admin: 11/12/22 17:59 Dose: 100 mls/hr Documented By: DEAN Azithromycin 500 mg/ Dextrose 250 mls @ 250 mls/hr IV Q24H JIMMIE Linezolid (Zyvox) 600 mg in 300 mls @ 600 mls/hr IV Q12H [facility] Cefepime HCl 2 gm/ Sodium (Chloride) 100 mls @ 200 mls/hr IV Q8H JIMMIE Levetiracetam (Levetiracetam 250 Mg Tablet) 1,000 mg PO BID JIMMIE Magnesium Hydroxide (Magnesium Hydroxide 30 Ml Udc) 30 ml PO DAILY PRN PRN Reason: Constipation Naloxone HCl (Naloxone 0.4 Mg/Ml Vial) 0.2 mg IV Q2MIN PRN PRN Reason: Opiate Reversal Ondansetron HCl (Ondansetron 4 Mg/2 Ml Inj) 4 mg IV Q8HR PRN PRN Reason: Nausea And Vomiting Oxycodone HCl (Oxycodone Ir 5 Mg Tablet) 5 mg PO Q3H PRN PRN Reason: Pain, Moderate (4-6) Sennosides (Sennosides 8.6 Mg Tablet) 17.2 mg PO BEDTIME [facility] Discontinued Medications Diltiazem HCl (Diltiazem 5 Mg/Ml Sdv) 10 mg IV NOW ONE Stop: 11/12/22 16:15 Last Admin: 11/12/22 16:24 Dose: 10 mg Documented By: DEAN Diphenhydramine HCl (Diphenhydramine 50 Mg/Ml Vial) 25 mg IV NOW ONE Stop: 11/12/22 08:40 Last Admin: 11/12/22 08:53 Dose: 25 mg Documented By: ISELA Diphenhydramine HCl (Diphenhydramine 50 Mg/Ml Vial) 25 mg IV NOW ONE Stop: 11/12/22 17:48 Last Admin: 11/12/22 17:58 Dose: 25 mg Documented By: DEAN Hydromorphone HCl (Hydromorphone 0.5 Mg Inj) 0.5 mg IV NOW ONE Stop: 11/12/22 08:09 Last Admin: 11/12/22 08:28 Dose: 0.5 mg Documented By: SUSANA Piperacillin Sod/Tazobactam (Sod 4.5 gm/ Sodium Chloride) 100 mls @ 200 mls/hr IV NOW ONE Stop: 11/12/22 15:02 Last Infusion: 11/12/22 16:53 Dose: 0 mls/hr Documented By: Admin: 11/12/22 15:48 Dose: 200 mls/hr Documented By: DEAN Sodium Chloride (Normal Saline 0.9%) 1,000 mls @ 1,000 mls/hr IV BOLUS ONE Stop: 11/12/22 17:13 Last Infusion: 11/12/22 17:44 Dose: 0 mls/hr Documented By: Admin: 11/12/22 16:22 Dose: 1,000 mls/hr Documented By: DEAN Vancomycin HCl (Vancomycin) 750 mg in 150 mls @ 150 mls/hr IV NOW ONE Stop: 11/12/22 17:52 Last Admin: 11/12/22 17:20 Dose: Not Given Documented By: DEAN Piperacillin Sod/Tazobactam (Sod 4.5 gm/ Sodium Chloride) 100 mls @ 25 mls/hr IV Q8H [facility] Last Admin: 11/12/22 18:19 Dose: Not Given Documented By: DEAN Piperacillin Sod/Tazobactam (Sod 3.375 gm/ Sodium Chloride) 100 mls @ 25 mls/hr IV Q8H [facility] Methylprednisolone (Methylprednisolone 125 Mg/2 Ml Vial) 125 mg IV NOW ONE Stop: 11/12/22 08:40 Last Admin: 11/12/22 08:53 Dose: 125 mg Documented By: ISELA Methylprednisolone (Methylprednisolone 125 Mg/2 Ml Vial) 125 mg IV NOW ONE Stop: 11/12/22 17:48 Last Admin: 11/12/22 17:58 Dose: 125 mg Documented By: DEAN Ondansetron HCl (Ondansetron 4 Mg/2 Ml Inj) 4 mg IV NOW ONE Stop: 11/12/22 08:09 Last Admin: 11/12/22 08:28 Dose: 4 mg Documented By: SUSANA Vancomycin HCl (Vancomycin Per Pharmacy) 1 request MISC NOW ONE Stop: 11/12/22 17:07 Last Admin: 11/12/22 17:20 Dose: Not Given Documented By: DEAN Vital Signs Vital signs: Vital Signs - 8 hr 11/12/22 10:30 11/12/22 11:00 11/12/22 11:30 Pulse Rate 86 79 76 Respiratory Rate 9 L 10 L 9 L Pulse Oximetry 96 96 95 11/12/22 12:00 11/12/22 12:30 11/12/22 13:00 Pulse Rate 81 79 85 Respiratory Rate 9 L 9 L 16 Pulse Oximetry 95 96 96 11/12/22 13:30 11/12/22 14:00 11/12/22 14:30 Pulse Rate 93 H 100 H 111 H Respiratory Rate 21 20 41 H Pulse Oximetry 97 96 11/12/22 15:00 Pulse Rate 139 H Respiratory Rate 31 H Pulse Oximetry 95 MDM - Abdominal Pain Lab Data Result diagrams: 11/12/22 07:55 11/12/22 07:55 Labs: Lab Results 11/12/22 11/12/22 11/12/22 Range/Units 07:55 07:55 07:55 WBC 9.3 (4.5-11.0) X10^3/uL RBC 3.39 L (4.0-5.2) X10^6/uL Hgb 12.0 (12.0-16.0) g/dL Hct 34.4 L (36-46) % MCV 101.6 H (80-100) fL MCH 35.4 H (26-34) PG MCHC 34.9 (30-36) % RDW 15.0 H (11.6-14.8) % Plt Count 142 L (150-400) X10^3/uL Neut % (Auto) Not Reportable Lymph % (Auto) Not Reportable [place] % (Auto) Not Reportable Eos % (Auto) Not Reportable Baso % (Auto) Not Reportable Lymph # (Auto) Not Reportable [place] # (Auto) Not Reportable Baso # (Auto) Not Reportable Total Counted 100 Seg Neutrophils % 70.0 (38-70) % Band Neutrophils % 5.0 (3-7) % Lymphocytes % (Manual) 20.0 L (25-45) % Monocytes % (Manual) 4.0 (2-11) % Basophils % (Manual) 1.0 (0-1) % Neutrophils # (Manual) 6975 H (6199-6188) /uL RBC Morphology Normal morphology PT 13.2 H (10.1-12.7) SECONDS INR 1.2 (0.9-1.3) APTT 29 (26-36) SECONDS Sodium (137-145) mmol/L Potassium (3.4-5.1) mmol/L Chloride (98-107) mmol/L Carbon Dioxide (22-32) mmol/L BUN (7-17) mg/dL Creatinine (0.52-1.04) mg/dL Estimated GFR (>60) mL/min BUN/Creatinine Ratio (6-22) Glucose (80-110) mg/dL Calcium (8.4-10.2) mg/dL Total Bilirubin (0.2-1.3) mg/dL AST (14-36) IU/L ALT (<35) IU/L Alkaline Phosphatase (38-126) U/L Total Creatine Kinase (30-135) U/L CK-MB (CK-2) CK-MB (CK-2) Rel Index Troponin I (0.01-0.034) ng/mL NT-Pro-B Natriuret Pep (<125) pg/mL Total Protein (6.3-8.2) g/dL Albumin (3.5-5.0) g/dL Globulin (1.7-4.1) g/dL Albumin/Globulin Ratio (1.0-2.8) Lipase (23-300) U/L Procalcitonin 0.08 (<0.5) ng/mL Urine RBC (0-5/HPF) Urine WBC (0-5/HPF) Ur Squamous Epith Cells (0-5/HPF) Urine Bacteria (None) Ur Culture Indicated? SARS-CoV-2 (PCR) (Negative) 11/12/22 11/12/22 11/12/22 Range/Units 07:55 07:55 12:03 WBC (4.5-11.0) X10^3/uL RBC (4.0-5.2) X10^6/uL Hgb (12.0-16.0) g/dL Hct (36-46) % MCV (80-100) fL MCH (26-34) PG MCHC (30-36) % RDW (11.6-14.8) % Plt Count (150-400) X10^3/uL Neut % (Auto) Lymph % (Auto) [place] % (Auto) Eos % (Auto) Baso % (Auto) Lymph # (Auto) [place] # (Auto) Baso # (Auto) Total Counted Seg Neutrophils % (38-70) % Band Neutrophils % (3-7) % Lymphocytes % (Manual) (25-45) % Monocytes % (Manual) (2-11) % Basophils % (Manual) (0-1) % Neutrophils # (Manual) (0684-0309) /uL RBC Morphology PT (10.1-12.7) SECONDS INR (0.9-1.3) APTT (26-36) SECONDS Sodium 137 (137-145) mmol/L Potassium 3.9 (3.4-5.1) mmol/L Chloride 105 (98-107) mmol/L Carbon Dioxide 26 (22-32) mmol/L BUN 15 (7-17) mg/dL Creatinine 0.46 L (0.52-1.04) mg/dL Estimated GFR > 60 (>60) mL/min BUN/Creatinine Ratio 32.6 H (6-22) Glucose 108 (80-110) mg/dL Calcium 8.3 L (8.4-10.2) mg/dL Total Bilirubin 0.6 (0.2-1.3) mg/dL AST 18 (14-36) IU/L ALT 21 (<35) IU/L Alkaline Phosphatase 88 (38-126) U/L Total Creatine Kinase < 20 L (30-135) U/L CK-MB (CK-2) TNP CK-MB (CK-2) Rel Index TNP Troponin I < 0.012 (0.01-0.034) ng/mL NT-Pro-B Natriuret Pep 567 H (<125) pg/mL Total Protein 6.6 (6.3-8.2) g/dL Albumin 3.2 L (3.5-5.0) g/dL Globulin 3.4 (1.7-4.1) g/dL Albumin/Globulin Ratio 0.9 L (1.0-2.8) Lipase 72 (23-300) U/L Procalcitonin (<0.5) ng/mL Urine RBC (0-5/HPF) Urine WBC (0-5/HPF) Ur Squamous Epith Cells (0-5/HPF) Urine Bacteria (None) Ur Culture Indicated? SARS-CoV-2 (PCR) Negative (Negative) 11/12/22 Range/Units 13:53 WBC (4.5-11.0) X10^3/uL RBC (4.0-5.2) X10^6/uL Hgb (12.0-16.0) g/dL Hct (36-46) % MCV (80-100) fL MCH (26-34) PG MCHC (30-36) % RDW (11.6-14.8) % Plt Count (150-400) X10^3/uL Neut % (Auto) Lymph % (Auto) [place] % (Auto) Eos % (Auto) Baso % (Auto) Lymph # (Auto) [place] # (Auto) Baso # (Auto) Total Counted Seg Neutrophils % (38-70) % Band Neutrophils % (3-7) % Lymphocytes % (Manual) (25-45) % Monocytes % (Manual) (2-11) % Basophils % (Manual) (0-1) % Neutrophils # (Manual) (3983-6595) /uL RBC Morphology PT (10.1-12.7) SECONDS INR (0.9-1.3) APTT (26-36) SECONDS Sodium (137-145) mmol/L Potassium (3.4-5.1) mmol/L Chloride (98-107) mmol/L Carbon Dioxide (22-32) mmol/L BUN (7-17) mg/dL Creatinine (0.52-1.04) mg/dL Estimated GFR (>60) mL/min BUN/Creatinine Ratio (6-22) Glucose (80-110) mg/dL Calcium (8.4-10.2) mg/dL Total Bilirubin (0.2-1.3) mg/dL AST (14-36) IU/L ALT (<35) IU/L Alkaline Phosphatase (38-126) U/L Total Creatine Kinase (30-135) U/L CK-MB (CK-2) CK-MB (CK-2) Rel Index Troponin I (0.01-0.034) ng/mL NT-Pro-B Natriuret Pep (<125) pg/mL Total Protein (6.3-8.2) g/dL Albumin (3.5-5.0) g/dL Globulin (1.7-4.1) g/dL Albumin/Globulin Ratio (1.0-2.8) Lipase (23-300) U/L Procalcitonin (<0.5) ng/mL Urine RBC None seen (0-5/HPF) Urine WBC 1-5/hpf (0-5/HPF) Ur Squamous Epith Cells 1-5 /hpf (0-5/HPF) Urine Bacteria None seen (None) Ur Culture Indicated? Cult not indicated SARS-CoV-2 (PCR) (Negative) Point of care testing: Urine Dip Bedside Urine Glucose Negative Bedside Urine Bilirubin - Negative Bedside Urine Ketone - Negative Urine Specific [place] 1.010 Bedside Urine Occult Blood - Negative Bedside Urine pH 5.5 Bedside Urine Protein - Negative Bedside Urine Urobilinogen - Negative Bedside Urine Nitrite - Negative Bedside Urine Leukocytes +/- [address] scan - abdomen/pelvis: Radiologist's Impression: [facility] [place] [id number] CT Scan Report Signed Patient: Shaye Spaulding MR#: [id number] : 1960 Acct:[id number] Age/Sex: 62 / F Date of Service: 11/12/22 Loc: ED Accession Number: [id number] ?? Procedure: CT abdomen pelvis w con Ordering Provider: Karla Morfin D.O. PROCEDURE:? CT ABDOMEN PELVIS W CON ? INDICATIONS:? Left upper quadrant pain and cancer ? TECHNIQUE:? After the administration of intravenous contrast, axial sections acquired from the lung bases to the pubic symphysis.? Coronal and sagittal reformats were performed.? For radiation dose reduction, the following was used:? automated exposure control, adjustment of mA and/or kV according to patient size.? ? COMPARISON:? [facility], CT, CT HEAD/BRAIN WO/W CON, 11/12/2022, 9:32.? [facility], MR, MR BRAIN WITH/WITHOUT CONTRAST, 11/06/2022, 12:01.? [facility], CT, CT ANGIO CHEST PE PROTOCOL, 11/12/2022, 9:32. ? FINDINGS:? Image quality:? Excellent.? ? Lung bases:? Posterior basal segment right lower lobe pulmonary embolus.? Patchy bibasilar pneumonia, left greater than right.? Small bilateral pleural effusions, left greater than right.. Heart:? Four-chamber cardiomegaly, mild to moderate pericardial effusion. ? ABDOMEN: Liver:? Unremarkable.? ? Gallbladder:? Unremarkable.? ? Biliary ducts:? Unremarkable.? ? Pancreas:? Unremarkable.? ? Spleen:? Unremarkable.? ? Adrenal Glands:? Unremarkable.? ? Kidneys and Ureters:? 6 mm upper pole left renal stone, nonobstructive.? No renal mass or hydronephrosis. ? Stomach and Bowel:? Stomach, small bowel loops, and colon are unremarkable.? Peritoneum:? Mild pelvic ascites.? No free air.? ? Ventral Wall: ? No hernias.? Abdominal Nodes:? No retroperitoneal or mesenteric adenopathy by size criteria.? Vessels:? Aorta and inferior vena cava are normal in size.? ? PELVIS: Pelvic Organs:? Unremarkable.? ? Bladder:? Unremarkable.? ? Pelvic Nodes: No enlarged lymph nodes.? Miscellaneous: No hernias are seen. ? ? ? Bones:? Mild age indeterminate T12 superior endplate compression fracture. ? ? IMPRESSION: ? 1. Right basilar acute pulmonary embolus. ? 2. Patchy bibasilar pneumonia, left greater than right. ? 3. Small bilateral pleural effusions, left greater than right. ? 4. Four-chamber cardiomegaly, mild to moderate pericardial effusion. ? 5. Nonobstructing left renal stone. ? 6. Mild pelvic ascites. ? 7. Age indeterminate mild T12 compression fracture.? ? ? Dictated by: Arnaud Griffin M.D. on 11/12/2022 at 10:17 ? ? Approved by: Arnaud Griffin M.D. on 11/12/2022 at 10:23 CT scan - chest: Radiologist's Impression: CT Scan Report Signed Patient: Shaye Spaulding MR#: [id number] : 1960 Acct:[id number] Age/Sex: 62 / F Date of Service: 11/12/22 Loc: ED Accession Number: [id number] ?? Procedure: CT angio chest PE protocol Ordering Provider: Karla Morfin D.O. PROCEDURE:? CT ANGIO CHEST PE PROTOCOL ? INDICATIONS:? Short of breath left-sided pain ? TECHNIQUE:? After the administration of intravenous contrast, 2 mm thick sections acquired from the pulmonary apices to the posterior costophrenic angles.? 3-dimensional maximum intensity projection (MIP) coronal and sagittal reformats were then acquired through the thorax.? For radiation dose reduction, the following was used:? automated exposure control, adjustment of mA and/or kV according to patient size.? ? COMPARISON:? None. ? FINDINGS:? Image quality:? Excellent.? ? Pulmonary arteries:? There is acute embolus involving the posterior basal segment of right lower lobe pulmonary artery.? No other pulmonary artery emboli are identified. ? Lungs and pleura:? There is a mild to moderate left pleural effusion and mild right pleural effusion.? Bibasilar consolidation, left greater than right, is consistent with bibasilar pneumonia. ? Mediastinum:? 4 four-chamber cardiomegaly.? [id number] pericardial effusion.? No mediastinal or hilar adenopathy.? Thoracic aorta is normal in caliber and enhancement.? Esophagus is normal in caliber, without hiatal hernia.? ? Bones and chest wall:? No suspicious bony lesions.? Ribs and thoracic spine appear intact throughout.? Thyroid gland is grossly unremarkable.? No axillary or supraclavicular adenopathy.? ? Abdomen:? Visualized upper abdominal solid organs appear normal in the early arterial phase of enhancement.? ? IMPRESSION:? ? 1. Focal acute pulmonary embolus, posterior basal segment of right lower lobe pulmonary artery. ? 2. Bibasilar pneumonia, left greater than right, bilateral pleural effusions, left greater than right. ? 3. Four-chamber cardiomegaly, mild to moderate pericardial effusion.? ? ? Dictated by: Arnaud Griffin M.D. on 11/12/2022 at 10:12 ? ? CT scan - head: Radiologist's Impression: Acct:[id number] Age/Sex: 62 / F Date of Service: 11/12/22 Loc: ED Accession Number: [id number] ?? Procedure: CT head/brain wo/w con Ordering Provider: Karla Morfin D.O. PROCEDURE:? CT HEAD/BRAIN WO/W CON ? INDICATIONS:? glioblastoma, left paresis ? TECHNIQUE:? 4.5 mm thick angled axial sections acquired from the foramen magnum to the verte x both before and after the administration of intravenous contrast, with coronal and sagittal reformats.? For radiation dose reduction, the following was used:? automated exposure control, adjustment of mA and/or kV according to patient size.? ? COMPARISON:? [facility], MR, MR BRAIN WITH/WITHOUT CONTRAST, 11/06/2022, 12:01. ? FINDINGS:? Image quality:? Excellent.? ? CSF spaces:? Basal cisterns are patent.? No extra-axial fluid collections.? Ventricles are symmetric in size and shape.? ? Brain:? Today CT findings correlate with the MRI from 6 days ago.? There is abnormal enhancement present in the region of the right head of caudate and adjacent deep white matter and right lenticulostriate .? There is low-density correlating with an area peripheral enhancement on the recent MRI in the deep white matter lateral to the right lateral ventricle period No midline shift.? There is no evidence of interval change since the recent MRI.? No evidence of interval hemorrhage or interval infarct.? Right temporal encephalomalacia, likely indicating previous tumor resection.? No abnormal intracranial enhancement.? There is cerebral volume loss for age.? There is periventricular white matter chronic small vessel ischemic change.? There is intracranial internal carotid artery atherosclerosis.? ? Skull and face:? Calvarium and visualized facial bones appear intact, without suspicious lesions.? ? Sinuses:? Visualized sinuses and mastoids are clear.? ? IMPRESSION:? Findings are unchanged from the recent prior MRI.? There is ill- defined enhancing tumor in the right cerebral hemisphere.? There is no interval infarct and no interval hemorrhage. ? ? Dictated by: Arnaud Griffin M.D. on 11/12/2022 at 10:03 ? ? Chest x-ray: Radiologist's Impression: XRay Report Signed Patient: Shaye Spaulding MR#: [id number] : 1960 Acct:[id number] Age/Sex: 62 / F Date of Service: 11/12/22 Loc: ED Accession Number: [id number] ?? Procedure: XR chest 1V Ordering Provider: Karla Morfin D.O. PROCEDURE:? XR CHEST 1V ? INDICATIONS:? chest pain ? TECHNIQUE:? One view of the chest was acquired.? ? COMPARISON:? [facility], CR, XR CHEST 1V, 08/22/2021, 13:02. ? FINDINGS:? ? Surgical changes and devices:? None.? ? Lungs and pleura:? Left basilar atelectasis versus infiltrate.? No pleural effusions or pneumothorax.? ? Mediastinum:? Mediastinal contours appear normal.? Heart size is normal.? ? Bones and chest wall:? No suspicious bony lesions.? Overlying soft tissues appear unremarkable.? ? IMPRESSION:? Left basilar atelectasis versus infiltrate. ? Comment: Progress films are recommended until clear. ? ? Dictated by: Arnaud Griffin M.D. on 11/12/2022 at 8:39 ? ? Approved by: Arnaud Griffin M.D. on 11/12/2022 at 8:40 ? ECG Data Interpretation: Atrial fibrillation rate 89 MDM Narrative Medical decision making narrative: Patient has known diagnosis of glioblastoma given poor prognosis recently by Oncology with about 2-3 months to live. Presenting today with severe left-sided pain. CT does reveal an incidental pulmonary embolism on the right which does not necessarily explain her plain pain.. However there is probable left-sided pneumonia. She has no leukocytosis or fever. She is treated empirically with Zosyn. There was possible iodine allergy so she was pretreated with Solu-Medrol and Benadryl. She took her home dose of dexamethasone as well. She is not septic she does not have a fever or leukocytosis. Blood pressure has been on the lower side but stable. Dr. Mahoney, oncology at [facility] patient's own oncologist is updated on patient's symptoms and test results. At this time states that as long as patient is not a fall risk can be started on Eliquis. Agrees with palliative care consult pain management. Encourage patient to go home and he will follow-up as outpatient. Patient has increasing AFib with RVR and hypotension. Given 10 mg of diltiazem blood pressure a little bit lower now in the 80s. She remains awake alert and oriented. I have spoken with the hospitalist Dr. Romano who agrees to admission and treat pneumonia. Conversations with and is extremely tired he is trying to work. She sleeping. He is primary caregiver in primary provider for his family. He is willing to look at hospice and palliative care however patient is not quite ready. Social work has been involved in care as well. Critical Care Time Critical Care Time Critical Care Time: Yes Total Critical Care Time: 45 Attestation: The high probability of a clinically significant, sudden or life threatening de terioration of the [cardiovascular] system(s) required my full and direct attention, intervention and personal management. The aggregate critical care time was [45] minutes. This time is in addition to time spent performing reported procedures but includes the following: [x] Data Review and interpretation [x] Patient assessment and monitoring of vital signs [x] Documentation [x] Medication orders and management Discharge Plan Departure Patient Disposition: Admitted as Observation Clinical Impression: Pneumonia, Atrial fibrillation Admit Date/Time: 11/12/22 15:26 Admit Provider: Rowdy Romano
[2022-11-12 08:18] LABS: PTT Partial Thromboplastin Tim 29 SECONDS (26-36)
[2022-11-12 08:22] LABS: Alanine Aminotransferase 21 IU/L (<35); Albumin 3.2 g/dL (3.5-5.0); Albumin Globulin Ratio 0.9 (1.0-2.8); Alkaline Phosphatase 88 U/L (38-126); Aspartate Aminotransferase 18 IU/L (14-36); BUN Creatinine Ratio 32.6 (6-22); Bilirubin Total 0.6 mg/dL (0.2-1.3); Blood Urea Nitrogen 15 mg/dL (7-17); Calcium 8.3 mg/dL (8.4-10.2); Carbon Dioxide 26 mmol/L (22-32); Chloride 105 mmol/L (98-107); Creatine Kinase < 20 U/L (30-135); Estimated Glomerular Filt Rate > 60 mL/min (>60); Globulin 3.4 g/dL (1.7-4.1); Glucose 108 mg/dL (80-110); HEMOLYSIS < 15 (0-50); Lipase 72 U/L (23-300); Potassium 3.9 mmol/L (3.4-5.1); Sodium 137 mmol/L (137-145); Total Protein 6.6 g/dL (6.3-8.2)
[2022-11-12 08:26] LABS: Add Manual Diff / Slide Review YES; Hematocrit 34.4 % (36-46); Mean Corpuscular HGB Conc 34.9 % (30-36); Mean Corpuscular Hemoglobin 35.4 PG (26-34); Mean Corpuscular Volume 101.6 fL (80-100); Platelet Count 142 X10^3/uL (150-400); Red Blood Cell Count 3.39 X10^6/uL (4.0-5.2); White Blood Cell Count 9.3 X10^3/uL (4.5-11.0)
[2022-11-12] MEDS: HYDROMORPHONE 0.5 MG INJ IV (08:28)
[2022-11-12] MEDS: ONDANSETRON 4 MG/2 ML INJ IV (08:28)
[2022-11-12 08:30] LABS: NT-proBNP (BNP-Adult 18+) 567 pg/mL (<125)
[2022-11-12 08:32] LABS: Troponin I < 0.012 ng/mL (0.01-0.034)
[2022-11-12 08:36] LABS: Neutrophils Absolute Manual 6975 /uL (3000-5900); RBC Morphology Normal Morphology; Total Cells Counted 100
[2022-11-12 08:38] LABS: Procalcitonin 0.08 ng/mL (<0.5)
[2022-11-12] MEDS: methylPREDNISolone 125 MG/2 ML VIAL IV ×2 (08:53→17:58)
[2022-11-12] MEDS: diphenhydrAMINE 50 MG/ML VIAL 25 MG IV ×3 (08:53→22:08)
[2022-11-12 13:09] LABS: COVID19 -Nasal RAPID Negative (Negative)
[2022-11-12 14:31] LABS: Bacteria Urine None Seen; Culture Indicated Urine Cult Not Indicated; RBC Urine None Seen (0-5/HPF); Squamous Epithelial Cell Urine 1-5 /HPF (0-5/HPF); WBC Urine 1-5/HPF (0-5/HPF)
--- NOTE | 2022-11-12 15:34 | CM.SWNOTE ---
ED SW Note Patient is a 62-year-old female history of atrial fibrillation, glioblastoma with left-sided weakness presenting today with left upper quadrant pain and PE. She is getting Avastin treatments she had some chemo and radiation done [facility] where she gets most of her care. Pt has [employer] and her oncologist is Jordan Montoya at [facility] in [place]. SW consulted to discuss hospice with pt and spouse, Riley. SW met pt and spouse at bedside and introduced self and role. Pt reports that she has been experiencing a lot of pain recently and has had more falls at home. Pt reports that she lives with her spouse, Riley who provides care giving at home. Riley works M,W,Th,Fri and cannot be available 24/06. Pt has been doing okay with limited support from Riley who prepares and feeds pt breakfast, prepares lunch that pt will be able to eat on her own, prepares dinner once home from work, and helps shower and exercise patient. Riley reports that pt's pain has gotten out of control and she is not sleeping at night, which in turn causes him to not sleep. Riley reports that he is unable to continue this pattern. SW discusses option of hospice and clarifies that they do not provide care giving but they can help manage pt's pain adequately enough to help sleep. Pt reports that she is not ready for hospice yet and she wants to continue to fight, despite poor prognosis reported from various providers. Pt reports that Riley's mother lives a few blocks away and can help when able but she is 83 years old and cannot physically assist patient. 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 LUPILLO met with Riley separately who reports that he believes pt will need hospice sooner than later. SW explained that pt can start hospice now but she needs to be willing. Pt previously had services starting with [facility] but was not home for the first appointment, which was today with LUPILLO Kitchen . Riley reports that if pt's pain was better controlled he believes they could keep going with the status quo for now, as they both would be getting adequate sleep. LUPILLO discusses pain plan with ED Provider, who will consult oncologist for outpatient plan. Pt is admitted for observation for PE. DANYELL Tomlinson
[2022-11-12] MEDS: PIPERACILLIN/TAZO 4.5 GM in SODIUM CHLORIDE 0.9% 100 ML IV (15:48)
--- NOTE | 2022-11-12 16:13 | PC.NURSE ---
Pt denies pain at this time. HR noted to be sustaining in the 120's and BP now 90/55. Dr Morfin made aware. verbal order for 1L NS bolus and 10mg IVP diltiazem.
[2022-11-12] MEDS: SODIUM CHLORIDE 0.9% 1,000 ML 1000 ML IV (16:22)
[2022-11-12] MEDS: dilTIAZem 5 MG/ML SDV 10 MG IV (16:24)
--- NOTE | 2022-11-12 16:53 | PC.NURSE ---
Dr Caruso in room for consult. Pt BP 78/systolic. Dr Caruso states pt is normally in the mid 80's systolic and he is ok with the BP at this time due to pt not being symptomatic. Pt receiving a 1L fluid bolus. content at this time and needs met.
--- NOTE | 2022-11-12 17:21 | P.HP_ITS ---
History of Present Illness History of Present Illness Date Patient Seen: 11/12/22 Time Patient Seen: 16:30 Chief complaint: LUQ abd pain, brain tumor injection on saturday Narrative: 62-year-old female with history of glioblastoma diagnosed in January 2021, chronic atrial fibrillation since her 20s, recent diagnosis of influenza who presents to the emergency department complaining of left sided chest and upper abdominal pain. Patient was most recently hospitalized at [facility] from October 22 to October 25 due to weakness and not feeling well. She was diagnosed with influenza and treated with Tamiflu. She also had a possible UTI. She was noted to have a small pericardial effusion at limited bedside echo. In terms of glioblastoma she is getting care at [facility] and [facility]. She was recently started on Avastin. She has chronic weakness and numbness on the left side secondary to the brain tumor. She is on Keppra for history of related seizures. Patient reports difficulty taking a deep breath associated with the left side pain. She states she has ongoing cough. Denies fevers or chills. She has frequent falls at home. Her was helping her walk to the car to come to ED and she almost passed out. also noted facial grimacing and eyes rolling up in her head. On ED vitals patient came in with BP 123/77 but became hypotensive with BP 90 over 50s. She then got dose of IV diltiazem 10 mg and dropped her systolic into the 70s which subsequently improved with fluid bolus. Heart rate initial 90-100 but up to 140 with her AFib. She states her blood pressures usually run in the mid 80s to 90s systolic and 60 diastolic. O2 sats have been 100% room air. Chest CTA showed focal acute PE in the posterior basal segment of right lower lobe pulmonary artery, bibasilar pneumonia left greater than right, bilateral pleural effusions left greater than right, 4 chamber cardiomegaly with [id number] pericardial effusion. Abdomen pelvic CT unremarkable for any acute findings, she has nonobstructing left renal stone and mild pelvic ascites and indeterminate mild T12 compression fracture. Head CT showed stable findings with ill-defined enhancing tumor in the right cerebral hemisphere, without infarction or hemorrhage. She is historically on dexamethasone 2 mg daily, Keppra 1000 mg b.i.d., diltiazem 30 mg at bedtime. Discharge 10/25 from [facility] on diltiazem 30 mg t.i.d. for AFib rate control. Patient History Medical History (Updated 11/12/22 @ 17:32 by Shilo Caruso MD) Chronic atrial fibrillation with RVR Glioblastoma Seizure Family & Social History Safety & Behavioral: Feels Safe in Current Yes Environment Been Physically Hurt or No Threatened By a Person Tobacco & Substance use: Smoking Status Never smoker alcohol intake frequency holiday/special occasion Substance Use Type does not use Meds Home Medications and Allergies Home Medications Medication Instructions Recorded Confirmed Type DILTIAZEM HCL (Diltzac ER) 120 mg PO QDAY ##0 12/08/12 02/25/22 History Allergies Allergy/AdvReac Type Severity Reaction Status Date / Time codeine Allergy ITCHING Verified 11/12/22 08:02 morphine Allergy ITCHING Verified 11/12/22 08:02 piperacillin [From Zosyn] Allergy Rash Verified 11/12/22 17:45 tazobactam [From Zosyn] Allergy Rash Verified 11/12/22 17:45 Review of Systems Review of Systems Narrative: Positive for dizziness/lightheadedness. Denies headache, visual changes, dysuria, new weakness, new speech difficulty. Exam Vital Signs (past 8 hours): - 11/12/22 09:46 11/12/22 10:00 11/12/22 10:30 Pulse Rate 97 H 83 86 Respiratory Rate 9 L 9 L Blood Pressure Pulse Oximetry 97 96 11/12/22 11:00 11/12/22 11:30 11/12/22 12:00 Pulse Rate 79 76 81 Respiratory Rate 10 L 9 L 9 L Blood Pressure Pulse Oximetry 96 95 95 11/12/22 12:30 11/12/22 13:00 11/12/22 13:30 Pulse Rate 79 85 93 H Respiratory Rate 9 L 16 21 Blood Pressure Pulse Oximetry 96 96 97 11/12/22 14:00 11/12/22 14:30 11/12/22 15:00 Pulse Rate 100 H 111 H 139 H Respiratory Rate 20 41 H 31 H Blood Pressure Pulse Oximetry 96 95 11/12/22 15:30 11/12/22 16:00 11/12/22 16:08 Pulse Rate 116 H 137 H Respiratory Rate 18 21 Blood Pressure 90/55 L Pulse Oximetry 96 94 11/12/22 16:08 11/12/22 16:24 11/12/22 16:27 Pulse Rate 133 H 128 H Respiratory Rate 33 H Blood Pressure 90/55 L 83/56 L Pulse Oximetry 96 11/12/22 16:27 11/12/22 16:28 11/12/22 16:28 Pulse Rate 95 H 97 H Respiratory Rate 22 24 Blood Pressure 77/53 L Pulse Oximetry 96 96 11/12/22 16:30 11/12/22 16:31 11/12/22 16:31 Pulse Rate 103 H 96 H Respiratory Rate 26 H 26 H Blood Pressure 79/51 L Pulse Oximetry 96 Oxygen Delivery Method Room Air Narrative Exam Narrative: General: Alert female lying in bed in no acute distress HEENT: Pupils equal and reactive, conjunctiva clear, sclera anicteric, EOMI Neck: Supple without lymphadenopathy Lungs: Clear to auscultation Heart: Irregularly irregular without murmur Abdomen: Soft, nontender, no mass or HSM Extremities: No peripheral edema Neurological: Oriented person and place, definite left-sided weakness and numbness with left side strength 3/5 in the arm and leg, right side strength and sensory intact Skin: No rash Objective Labs Result Diagrams: 11/12/22 07:55 11/12/22 07:55 Labs: Laboratory Results - last 24 hr 11/12/22 11/12/22 11/12/22 07:55 07:55 07:55 WBC 9.3 RBC 3.39 L Hgb 12.0 Hct 34.4 L MCV 101.6 H MCH 35.4 H MCHC 34.9 RDW 15.0 H Plt Count 142 L Neut % (Auto) Not Reportable Lymph % (Auto) Not Reportable [place] % (Auto) Not Reportable Eos % (Auto) Not Reportable Baso % (Auto) Not Reportable Lymph # (Auto) Not Reportable [place] # (Auto) Not Reportable Baso # (Auto) Not Reportable Total Counted 100 Seg Neutrophils % 70.0 Band Neutrophils % 5.0 Lymphocytes % (Manual) 20.0 L Monocytes % (Manual) 4.0 Basophils % (Manual) 1.0 Neutrophils # (Manual) 6975 H RBC Morphology Normal morphology PT 13.2 H INR 1.2 APTT 29 Sodium Potassium Chloride Carbon Dioxide BUN Creatinine Estimated GFR BUN/Creatinine Ratio Glucose Calcium Total Bilirubin AST ALT Alkaline Phosphatase Total Creatine Kinase CK-MB (CK-2) CK-MB (CK-2) Rel Index Troponin I NT-Pro-B Natriuret Pep Total Protein Albumin Globulin Albumin/Globulin Ratio Lipase Procalcitonin 0.08 Urine RBC Urine WBC Ur Squamous Epith Cells Urine Bacteria Ur Culture Indicated? SARS-CoV-2 (PCR) 11/12/22 11/12/22 11/12/22 07:55 07:55 12:03 WBC RBC Hgb Hct MCV MCH MCHC RDW Plt Count Neut % (Auto) Lymph % (Auto) [place] % (Auto) Eos % (Auto) Baso % (Auto) Lymph # (Auto) [place] # (Auto) Baso # (Auto) Total Counted Seg Neutrophils % Band Neutrophils % Lymphocytes % (Manual) Monocytes % (Manual) Basophils % (Manual) Neutrophils # (Manual) RBC Morphology PT INR APTT Sodium 137 Potassium 3.9 Chloride 105 Carbon Dioxide 26 BUN 15 Creatinine 0.46 L Estimated GFR > 60 BUN/Creatinine Ratio 32.6 H Glucose 108 Calcium 8.3 L Total Bilirubin 0.6 AST 18 ALT 21 Alkaline Phosphatase 88 Total Creatine Kinase < 20 L CK-MB (CK-2) TNP CK-MB (CK-2) Rel Index TNP Troponin I < 0.012 NT-Pro-B Natriuret Pep 567 H Total Protein 6.6 Albumin 3.2 L Globulin 3.4 Albumin/Globulin Ratio 0.9 L Lipase 72 Procalcitonin Urine RBC Urine WBC Ur Squamous Epith Cells Urine Bacteria Ur Culture Indicated? SARS-CoV-2 (PCR) Negative 11/12/22 13:53 WBC RBC Hgb Hct MCV MCH MCHC RDW Plt Count Neut % (Auto) Lymph % (Auto) [place] % (Auto) Eos % (Auto) Baso % (Auto) Lymph # (Auto) [place] # (Auto) Baso # (Auto) Total Counted Seg Neutrophils % Band Neutrophils % Lymphocytes % (Manual) Monocytes % (Manual) Basophils % (Manual) Neutrophils # (Manual) RBC Morphology PT INR APTT Sodium Potassium Chloride Carbon Dioxide BUN Creatinine Estimated GFR BUN/Creatinine Ratio Glucose Calcium Total Bilirubin AST ALT Alkaline Phosphatase Total Creatine Kinase CK-MB (CK-2) CK-MB (CK-2) Rel Index Troponin I NT-Pro-B Natriuret Pep Total Protein Albumin Globulin Albumin/Globulin Ratio Lipase Procalcitonin Urine RBC None seen Urine WBC 1-5/hpf Ur Squamous Epith Cells 1-5 /hpf Urine Bacteria None seen Ur Culture Indicated? Cult not indicated SARS-CoV-2 (PCR) Assessment & Plan Assessment & Plan narrative: 1. Bilateral lower lobe pneumonia, likely bacterial, complication of recent influenza -patient presents with cough, left pleuritic pain and appearance of the bilateral lower lobe consolidation on lung imaging, normal WBC and prolactin probably not reliable in patient with active malignancy -recent admission to outside hospital for influenza but not noted to have pneumonia then, now at risk for MRSA pneumonia -immunocompromise on chronic steroid for her glioblastoma -treat with linezolid, cefepime and azithromycin -patient developed itching and rash on upper extremities after Zosyn given in the ED, this was managed with Benadryl, entry made in her allergy list -patient is not tachypneic and not requiring supplemental O2 -check lactate 2. Acute focal PE right lung -CTA noted acute embolus in posterior basal segment of right lower lobe pulmonary artery -this is opposite side of her pleuritic chest pain and likely incidental and appear stable -anticoagulation contraindicated due to active history of vasogenic edema secondary to glioblastoma 3. Chronic atrial fibrillation with RVR -not anticoagulated secondary to brain edema from glioblastoma -patient at baseline runs low on blood pressure and may not tolerate rate control agents -order diltiazem IR 30 mg b.i.d. as needed for resting heart rate greater than 115, hold for Bp < 100/60 -telemetry 4. Pericardial effusion -do not think this is clinically significant, noted on recent outside admission to have small pericardial effusion -echo at [facility] showed EF 50-55%, small pericardial effusion, no evidence of tamponade -echo from 01/2022 with normal EF, mild septal hypertrophy, severe biatrial dilatation, mild tricuspid regurgitation 5. Left hemiparesis due to brain tumor -patient with frequent falls at home, per Oncology note on November 09 she has had clear neurological deterioration since early September with numbness and weakness on her left side, has left footdrop, and mostly dependent on wheelchair although does use her walker and has been falling -fall precautions in hospital -receive stress dose steroid in ED -continue dexamethasone 2 mg q.day per home routine 6. Glioblastoma -under care of Dr Kay at [facility] and also followed at , recently started on Avastin to help with vasogenic edema 7. History of seizures secondary to brain tumor -witness seizure prior to ED -continue Keppra 1000 mg b.i.d. per home routine Time Spent With Patient Critical Care time: I spent a total of [] minutes of critical care time on this patient's care today; this time is exclusive of procedural time.
--- NOTE | 2022-11-12 17:47 | PC.NURSE ---
1745: pt noted to have allergic reaction to zosyn. IV site and bilateral arms and neck wit red patchy rash, itching. airway patent and pt denies worsening SOB. tongue normal in size and pt denies any GI upset. Call placed to Dr Caruso and verbal order for benadryl 25mg and solumedrol 125mg.
[2022-11-12] MEDS: SODIUM CHLORIDE 0.9% 1,000 ML 100 ML IV ×2 (17:59→23:55)
--- NOTE | 2022-11-12 18:44 | PC.NURSE ---
Pt was able to obtain mychart info from admission at outside hospitals and allergy list updated. Rash still apparent and pt continues to itch. Airway intact/patent and pt speaking in full sentences and pt denies worsening SOB. Per RN discretion, holding subsequent ABX at this time.
--- NOTE | 2022-11-12 19:31 | PC.NURSE ---
Rash improving. pt report she is still having itching. NAD. Talking on cell phone. BP remains soft 80's/systolic which is not abnormal from her baseline. Purewick in place draining clear yellow urine
[2022-11-12] MEDS: levETIRAcetam 250 MG TABLET 1000 MG PO (21:05)
[2022-11-12] MEDS: AZITHROMYCIN 500 MG in DEXTROSE 5% IN WATER 250 ML 250 MG IV (21:05)
--- NOTE | 2022-11-12 21:17 | PC.NURSE ---
Pt's rash is about 90% better. Noted to still have some red patchy rash areas on bilateral lower arms, behind R knee/thigh, and lower abdomen. Pt reports itching is better but still there Dr Sam made aware of cephalosporin allergy and advised to hold cefepime. Azithromycin and fluid bolus infusing at this time.
--- NOTE | 2022-11-12 21:51 | PC.NURSE ---
Pt starting to have allergic rxn to azithromycin. having increased rash and itching on palms of hands,abdomen, and chest. Dr Sam made aware. azithromycin stopped and fluids continue to infuse. Order for Q4 PRN benadryl.
[2022-11-12 22:02] LABS: Lactate (Lactic Acid) 1.7 mmol/L (0.7-2.1)
--- NOTE | 2022-11-12 22:15 | PC.NURSE ---
Report recevied from LAMINE Cain - assumed care of pt at this time
--- NOTE | 2022-11-12 22:30 | PC.NURSE ---
Red splotched to her body and redness to her cheeks remains - worsening to the right hand - states that it itches - cool washcloth given to hold against so she doesn't scratch - states that it helps - airway patent - PWD with respirations equal and unlabored bilaterally
--- NOTE | 2022-11-12 23:00 | PC.NURSE ---
Speaking with RN at bedside - alert and oriented - speech clear - respirations equal and unlabored bilaterally - no needs voiced - adjusted in bed for position of comfort - no other needs voiced
[2022-11-13] VITALS (17 sets, daily range): BP systolic 82–106; BP diastolic 52–77; PULSE 84–94; RESP 6–18; TEMP 36.3–36.7; O2SAT 95–98; BMI 21.9
--- NOTE | 2022-11-13 | PC.NURSE ---
Resting quietly in NAD - no needs voiced - PWD with respirations equal and unlabored bilaterally - eyes closed - lights dimmed - allowed to rest - no concerns for airway/allergic reaction at this time - skinn calmed - splotches decreased at this time
--- NOTE | 2022-11-13 01:00 | PC.NURSE ---
No changes at this time in pt status
--- NOTE | 2022-11-13 02:00 | PC.NURSE ---
No changes in pt status at this time
--- NOTE | 2022-11-13 03:00 | PC.NURSE ---
No changes at this time - continued to be allowed to rest
--- NOTE | 2022-11-13 04:00 | PC.NURSE ---
No changes in pt status at this time
--- NOTE | 2022-11-13 05:00 | PC.NURSE ---
Awakened at this time - labs drawn from IV by this RN - tolerated well
--- NOTE | 2022-11-13 05:30 | PC.NURSE ---
given po fluid and food - tolerating well
[2022-11-13 05:59] LABS: Lactate (Lactic Acid) 1.8 mmol/L (0.7-2.1)
--- NOTE | 2022-11-13 06:00 | PC.NURSE ---
Resting quietly in darkened room - no needs voiced at this time
--- NOTE | 2022-11-13 06:00 | PC.NURSE ---
No changes in pt status
[2022-11-13 06:01] LABS: Alanine Aminotransferase 21 IU/L (<35); Albumin 2.8 g/dL (3.5-5.0); Albumin Globulin Ratio 0.8 (1.0-2.8); Alkaline Phosphatase 70 U/L (38-126); Aspartate Aminotransferase 19 IU/L (14-36); BUN Creatinine Ratio 34.2 (6-22); Bilirubin Total 0.3 mg/dL (0.2-1.3); Blood Urea Nitrogen 13 mg/dL (7-17); Calcium 7.8 mg/dL (8.4-10.2); Carbon Dioxide 23 mmol/L (22-32); Chloride 111 mmol/L (98-107); Estimated Glomerular Filt Rate > 60 mL/min (>60); Globulin 3.3 g/dL (1.7-4.1); Glucose 143 mg/dL (80-110); HEMOLYSIS 38 (0-50); Potassium 3.9 mmol/L (3.4-5.1); Sodium 140 mmol/L (137-145); Total Protein 6.1 g/dL (6.3-8.2)
[2022-11-13 06:03] LABS: Hematocrit 30.8 % (36-46); Hemoglobin 10.9 g/dL (12.0-16.0); Mean Corpuscular HGB Conc 35.4 % (30-36); Mean Corpuscular Hemoglobin 35.7 PG (26-34); Platelet Count 140 X10^3/uL (150-400); Red Blood Cell Count 3.05 X10^6/uL (4.0-5.2); Red Cell Distribution Width 15.5 % (11.6-14.8); White Blood Cell Count 8.4 X10^3/uL (4.5-11.0)
[2022-11-13 06:10] LABS: Add Manual Diff / Slide Review YES
[2022-11-13 06:36] LABS: Neutrophils Absolute Manual 6720 /uL (3000-5900); RBC Morphology Normal Morphology; Total Cells Counted 100
--- NOTE | 2022-11-13 07:00 | PC.NURSE ---
No changes at this time
--- NOTE | 2022-11-13 07:29 | PM.PN.1 ---
Subjective Subjective Date Patient Seen: 11/13/22 Interval history: Patient feeling better today. Rash has improved after receiving IV benadryl. No further issues with A-fib RVR overnight. Exam Vital Signs (past 8 hours): - 11/12/22 23:30 11/12/22 23:30 11/12/22 23:41 Pulse Rate 108 H Respiratory Rate 20 Blood Pressure 89/51 L 85/47 L Pulse Oximetry 96 11/12/22 23:41 11/12/22 23:50 11/12/22 23:50 Pulse Rate 96 H 94 H Respiratory Rate 19 16 Blood Pressure 90/55 L Pulse Oximetry 97 97 11/13/22 00:00 11/13/22 00:00 11/13/22 00:10 Pulse Rate 94 H Respiratory Rate 13 Blood Pressure 85/53 L 88/62 L Pulse Oximetry 97 11/13/22 00:10 11/13/22 00:20 11/13/22 00:20 Pulse Rate 89 91 H Respiratory Rate 15 16 Blood Pressure 89/64 L Pulse Oximetry 97 96 11/13/22 00:30 11/13/22 00:30 11/13/22 00:40 Pulse Rate 87 89 Respiratory Rate 14 15 Blood Pressure 82/52 L Pulse Oximetry 97 96 11/13/22 00:40 11/13/22 00:50 11/13/22 00:50 Pulse Rate 85 Respiratory Rate 11 L Blood Pressure 100/56 L 101/67 Pulse Oximetry 96 11/13/22 01:00 11/13/22 01:00 11/13/22 01:30 Pulse Rate 90 Respiratory Rate 9 L Blood Pressure 90/61 88/57 L Pulse Oximetry 96 11/13/22 01:30 11/13/22 02:00 11/13/22 02:00 Pulse Rate 88 84 Respiratory Rate 6 L 7 L Blood Pressure 103/64 Pulse Oximetry 96 96 Oxygen Delivery Method Room Air Narrative Exam Narrative: General: Alert female lying in bed in no acute distress HEENT: Pupils equal and reactive, conjunctiva clear, sclera anicteric, EOMI Neck: Supple without lymphadenopathy Lungs: Clear to auscultation Heart: Irregularly irregular without murmur Abdomen: Soft, nontender, no mass or HSM Extremities: No peripheral edema Neurological: Oriented person and place, definite left-sided weakness and numbness with left side strength 3/5 in the arm and leg, right side strength and sensory intact Skin: Faint rash on upper ext's Objective Labs Result Diagrams: 11/13/22 05:02 11/13/22 05:02 Labs: Laboratory Results - last 24 hr 11/12/22 11/12/22 11/12/22 07:55 07:55 07:55 WBC 9.3 RBC 3.39 L Hgb 12.0 Hct 34.4 L MCV 101.6 H MCH 35.4 H MCHC 34.9 RDW 15.0 H Plt Count 142 L Neut % (Auto) Not Reportable Lymph % (Auto) Not Reportable [place] % (Auto) Not Reportable Eos % (Auto) Not Reportable Baso % (Auto) Not Reportable Lymph # (Auto) Not Reportable [place] # (Auto) Not Reportable Baso # (Auto) Not Reportable Total Counted 100 Seg Neutrophils % 70.0 Band Neutrophils % 5.0 Lymphocytes % (Manual) 20.0 L Monocytes % (Manual) 4.0 Basophils % (Manual) 1.0 Metamyelocytes % Neutrophils # (Manual) 6975 H RBC Morphology Normal morphology PT 13.2 H INR 1.2 APTT 29 Sodium Potassium Chloride Carbon Dioxide BUN Creatinine Estimated GFR BUN/Creatinine Ratio Glucose Lactate Calcium Total Bilirubin AST ALT Alkaline Phosphatase Total Creatine Kinase CK-MB (CK-2) CK-MB (CK-2) Rel Index Troponin I NT-Pro-B Natriuret Pep Total Protein Albumin Globulin Albumin/Globulin Ratio Lipase Procalcitonin 0.08 Urine RBC Urine WBC Ur Squamous Epith Cells Urine Bacteria Ur Culture Indicated? Nasal Screen MRSA (PCR) SARS-CoV-2 (PCR) 11/12/22 11/12/22 11/12/22 07:55 07:55 12:03 WBC RBC Hgb Hct MCV MCH MCHC RDW Plt Count Neut % (Auto) Lymph % (Auto) [place] % (Auto) Eos % (Auto) Baso % (Auto) Lymph # (Auto) [place] # (Auto) Baso # (Auto) Total Counted Seg Neutrophils % Band Neutrophils % Lymphocytes % (Manual) Monocytes % (Manual) Basophils % (Manual) Metamyelocytes % Neutrophils # (Manual) RBC Morphology PT INR APTT Sodium 137 Potassium 3.9 Chloride 105 Carbon Dioxide 26 BUN 15 Creatinine 0.46 L Estimated GFR > 60 BUN/Creatinine Ratio 32.6 H Glucose 108 Lactate Calcium 8.3 L Total Bilirubin 0.6 AST 18 ALT 21 Alkaline Phosphatase 88 Total Creatine Kinase < 20 L CK-MB (CK-2) TNP CK-MB (CK-2) Rel Index TNP Troponin I < 0.012 NT-Pro-B Natriuret Pep 567 H Total Protein 6.6 Albumin 3.2 L Globulin 3.4 Albumin/Globulin Ratio 0.9 L Lipase 72 Procalcitonin Urine RBC Urine WBC Ur Squamous Epith Cells Urine Bacteria Ur Culture Indicated? Nasal Screen MRSA (PCR) SARS-CoV-2 (PCR) Negative 11/12/22 11/12/22 11/12/22 13:53 21:28 22:01 WBC RBC Hgb Hct MCV MCH MCHC RDW Plt Count Neut % (Auto) Lymph % (Auto) [place] % (Auto) Eos % (Auto) Baso % (Auto) Lymph # (Auto) [place] # (Auto) Baso # (Auto) Total Counted Seg Neutrophils % Band Neutrophils % Lymphocytes % (Manual) Monocytes % (Manual) Basophils % (Manual) Metamyelocytes % Neutrophils # (Manual) RBC Morphology PT INR APTT Sodium Potassium Chloride Carbon Dioxide BUN Creatinine Estimated GFR BUN/Creatinine Ratio Glucose Lactate 1.7 Calcium Total Bilirubin AST ALT Alkaline Phosphatase Total Creatine Kinase CK-MB (CK-2) CK-MB (CK-2) Rel Index Troponin I NT-Pro-B Natriuret Pep Total Protein Albumin Globulin Albumin/Globulin Ratio Lipase Procalcitonin Urine RBC None seen Urine WBC 1-5/hpf Ur Squamous Epith Cells 1-5 /hpf Urine Bacteria None seen Ur Culture Indicated? Cult not indicated Nasal Screen MRSA (PCR) Negative for mrsa SARS-CoV-2 (PCR) 11/13/22 11/13/22 11/13/22 05:02 05:02 05:02 WBC 8.4 RBC 3.05 L Hgb 10.9 L Hct 30.8 L MCV 101.0 H MCH 35.7 H MCHC 35.4 RDW 15.5 H Plt Count 140 L Neut % (Auto) Not Reportable Lymph % (Auto) Not Reportable [place] % (Auto) Not Reportable Eos % (Auto) Not Reportable Baso % (Auto) Not Reportable Lymph # (Auto) Not Reportable [place] # (Auto) Not Reportable Baso # (Auto) Not Reportable Total Counted 100 Seg Neutrophils % 70.0 Band Neutrophils % 10.0 H Lymphocytes % (Manual) 17.0 L Monocytes % (Manual) 1.0 L Basophils % (Manual) Metamyelocytes % 2.0 H Neutrophils # (Manual) 6720 H RBC Morphology Normal morphology PT INR APTT Sodium 140 Potassium 3.9 Chloride 111 H Carbon Dioxide 23 BUN 13 Creatinine 0.38 L Estimated GFR > 60 BUN/Creatinine Ratio 34.2 H Glucose 143 H Lactate 1.8 Calcium 7.8 L Total Bilirubin 0.3 AST 19 ALT 21 Alkaline Phosphatase 70 Total Creatine Kinase CK-MB (CK-2) CK-MB (CK-2) Rel Index Troponin I NT-Pro-B Natriuret Pep Total Protein 6.1 L Albumin 2.8 L Globulin 3.3 Albumin/Globulin Ratio 0.8 L Lipase Procalcitonin Urine RBC Urine WBC Ur Squamous Epith Cells Urine Bacteria Ur Culture Indicated? Nasal Screen MRSA (PCR) SARS-CoV-2 (PCR) [facility] Medical History (Updated 11/12/22 @ 18:35 by Karla Morfin DO) Chronic atrial fibrillation with RVR Glioblastoma Seizure Social History household members: spouse Smoking Status: Never smoker Assessment & Plan Assessment & Plan narrative: 1. Bilateral lower lobe pneumonia, likely gram negative, complication of recent influenza -patient presents with cough, left pleuritic pain and appearance of the bilateral lower lobe consolidation on lung imaging, normal WBC and prolactin probably not reliable in patient with active malignancy -recent admission to outside hospital for influenza but not noted to have pneumonia then, now at risk for MRSA pneumonia -immunocompromise on chronic steroid for her glioblastoma -patient developed itching and rash on upper extremities after Zosyn given in the ED, this was managed with Benadryl, entry made in her allergy list -now po augmentin and doxy for CAP coverage -patient is not tachypneic and not requiring supplemental O2 -lactate 1.8 2. Acute focal PE right lung -CTA noted acute embolus in posterior basal segment of right lower lobe pulmonary artery -this is opposite side of her pleuritic chest pain and likely incidental and appear stable -anticoagulation contraindicated due to active history of vasogenic edema secondary to glioblastoma 3. Chronic atrial fibrillation with RVR -not anticoagulated secondary to brain edema from glioblastoma -patient at baseline runs low on blood pressure and may not tolerate rate control agents -reordered patient's home dilt -continue IVF for now due to soft BP -telemetry 4. Pericardial effusion -do not think this is clinically significant, noted on recent outside admission to have small pericardial effusion -echo at [facility] showed EF 50-55%, small pericardial effusion, no evidence of tamponade -echo from 01/2022 with normal EF, mild septal hypertrophy, severe biatrial dilatation, mild tricuspid regurgitation 5. Left hemiparesis due to brain tumor -patient with frequent falls at home, per Oncology note on November 09 she has had clear neurological deterioration since early September with numbness and weakness on her left side, has left footdrop, and mostly dependent on wheelchair although does use her walker and has been falling -fall precautions in hospital -receive stress dose steroid in ED -continue dexamethasone 2 mg q.day per home routine 6. Glioblastoma -under care of Dr Kay at [facility] and also followed at , recently started on Avastin to help with vasogenic edema 7. History of seizures secondary to brain tumor -witness seizure prior to ED -continue Keppra 1000 mg b.i.d. per home routine Code status is full code. COVID negative. DVT prophylaxis with SCDs. Proxy is Riley. I have reviewed home meds and used all available resources to reconcile the home meds. Dispo: Likely home 11/14. Time Spent With Patient Critical Care time: I spent a total of [] minutes of critical care time on this patient's care today; this time is exclusive of procedural time.
--- NOTE | 2022-11-13 08:00 | PC.NURSE ---
Report to dayshift RN team = care relinquished
[2022-11-13] MEDS: diphenhydrAMINE 50 MG/ML VIAL 25 MG IV (08:51)
[2022-11-13] MEDS: dexAMETHasone 1 MG TABLET 2 MG PO (08:52)
[2022-11-13] MEDS: levETIRAcetam 250 MG TABLET 1000 MG PO ×2 (08:55→20:15)
[2022-11-13] MEDS: dilTIAZem 30 MG TABLET PO ×2 (09:02→12:56)
[2022-11-13] MEDS: DOXYCYCLINE HYCLATE 100 MG TABLET PO ×2 (12:06→20:14)
[2022-11-13] MEDS: AMOXICILLIN/CLAV 875/125 MG 1 TAB PO ×2 (12:06→20:14)
[2022-11-13] MEDS: SODIUM CHLORIDE 0.9% 1,000 ML 100 ML IV (12:07)
[2022-11-13 12:10] LABS: Troponin I < 0.012 ng/mL (0.01-0.034)
[2022-11-13] MEDS: IBUPROFEN 600 MG TABLET PO ×2 (15:33→20:32)
[2022-11-13] MEDS: polyethylene glycoL 3350 17 GM POWD.PACK PO (15:34)
[2022-11-13] MEDS: SODIUM CHLORIDE 0.9% FLUSH 10 ML IV (20:15)
[2022-11-13] MEDS: SENNOSIDES 8.6 MG TABLET 17.2 MG PO (20:15)
[2022-11-13] MEDS: CALCIUM CARBONATE 500 MG TAB PO (20:32)
--- NOTE | 2022-11-13 23:04 | PC.NURSE ---
Patient is alert and oriented. Breath sounds CTA with RA sat of 98%. HR irregular as per history of afib and telemetry reading was afib CVR w/PVC's. Complained of reflux earlier and Tums order obtained from Nestor VIEIRA, and nehemias. BT present and has passed some flatus but has not had a BM since 11/10; medicated with Senna and will provide MOM in a.m. Using Purewick per patient request for urinary output. Did get up to BSC but did not void at that time. Is needing assistance to reposition q2h due to weakness/numbness/tingling in left upper/lower extremity. Did get up to BSC with 2 assist; attempted to use walker but unable to do so because of the decreased mobility of left extremities. Complained of generalized 8/10 pain but refused to take anything other than Ibuprofen for the pain. Wearing bilateral calf SCD's. Fall risk score is high and bed alarm is activated.
[2022-11-14 00:11] VITALS: BP 88/62; PULSE 73; RESP 18; TEMP 37.1; O2SAT 97
[2022-11-14 03:51] VITALS: BP 112/75; PULSE 86; RESP 18; TEMP 36.8; O2SAT 98
[2022-11-14] MEDS: MAGNESIUM HYDROXIDE 30 ML UDC PO (05:56)
--- NOTE | 2022-11-14 07:44 | P.DS_ITS ---
History of Present Illness History of Present Illness Date Patient Seen: 11/14/22 Time Patient Seen: 16:30 Chief complaint: LUQ abd pain, brain tumor injection on saturday Narrative: 62-year-old female with history of glioblastoma diagnosed in January 2021, chronic atrial fibrillation since her 20s, recent diagnosis of influenza who presents to the emergency department complaining of left sided chest and upper abdominal pain. Patient was most recently hospitalized at [facility] from October 22 to October 25 due to weakness and not feeling well. She was diagnosed with influenza and treated with Tamiflu. She also had a possible UTI. She was noted to have a small pericardial effusion at limited bedside echo. In terms of glioblastoma she is getting care at [facility] and [facility]. She was recently started on Avastin. She has chronic weakness and numbness on the left side secondary to the brain tumor. She is on Keppra for history of related seizures. Patient reports difficulty taking a deep breath associated with the left side pain. She states she has ongoing cough. Denies fevers or chills. She has frequent falls at home. Her was helping her walk to the car to come to ED and she almost passed out. also noted facial grimacing and eyes rolling up in her head. On ED vitals patient came in with BP 123/77 but became hypotensive with BP 90 over 50s. She then got dose of IV diltiazem 10 mg and dropped her systolic into the 70s which subsequently improved with fluid bolus. Heart rate initial 90-100 but up to 140 with her AFib. She states her blood pressures usually run in the mid 80s to 90s systolic and 60 diastolic. O2 sats have been 100% room air. Chest CTA showed focal acute PE in the posterior basal segment of right lower lobe pulmonary artery, bibasilar pneumonia left greater than right, bilateral pleural effusions left greater than right, 4 chamber cardiomegaly with [id number] pericardial effusion. Abdomen pelvic CT unremarkable for any acute findings, she has nonobstructing left renal stone and mild pelvic ascites and indeterminate mild T12 compression fracture. Head CT showed stable findings with ill-defined enhancing tumor in the right cerebral hemisphere, without infarction or hemorrhage. She is historically on dexamethasone 2 mg daily, Keppra 1000 mg b.i.d., diltiazem 30 mg at bedtime. Discharge 10/25 from [facility] on diltiazem 30 mg t.i.d. for AFib rate control. Discharge Providers Provider Date of admission: 11/12/22 15:26 Discharge Date: 11/14/22 Primary care physician: Hola Larson MD Consults: 11/12/22 10:56 Consult to GRINDER SET UP OPERATOR THREAD TOOL - Technical Consultant Stat Comment: Discharge provider: Rowdy Romano DO Summary Hospital Course Discharge Diagnosis: 1. Bilateral lower lobe pneumonia, likely gram negative, complication of recent influenza -patient presents with cough, left pleuritic pain and appearance of the bilateral lower lobe consolidation on lung imaging, normal WBC and prolactin probably not reliable in patient with active malignancy -recent admission to outside hospital for influenza but not noted to have pneumonia then, now at risk for MRSA pneumonia -immunocompromise on chronic steroid for her glioblastoma -patient developed itching and rash on upper extremities after Zosyn given in the ED, this was managed with Benadryl, entry made in her allergy list -now po augmentin and doxy for CAP coverage and continued on discharge -patient is not tachypneic and not requiring supplemental O2 -lactate 1.8 2. Acute focal PE right lung -CTA noted acute embolus in posterior basal segment of right lower lobe pulmonary artery -this is opposite side of her pleuritic chest pain and likely incidental and appear stable -anticoagulation contraindicated due to active history of vasogenic edema secondary to glioblastoma 3. Chronic atrial fibrillation with RVR -not anticoagulated secondary to brain edema from glioblastoma -patient at baseline runs low on blood pressure and may not tolerate rate control agents -reordered patient's home dilt -continue IVF for now due to soft BP -telemetry 4. Pericardial effusion -do not think this is clinically significant, noted on recent outside admission to have small pericardial effusion -echo at [facility] showed EF 50-55%, small pericardial effusion, no evidence of tamponade -echo from 01/2022 with normal EF, mild septal hypertrophy, severe biatrial dilatation, mild tricuspid regurgitation 5. Left hemiparesis due to brain tumor -patient with frequent falls at home, per Oncology note on November 09 she has had clear neurological deterioration since early September with numbness and weakness on her left side, has left footdrop, and mostly dependent on wheelchair although does use her walker and has been falling -fall precautions in hospital -receive stress dose steroid in ED -continue dexamethasone 2 mg q.day per home routine 6.? Glioblastoma -under care of Dr Kay at [facility] and also followed at , recently started on Avastin to help with vasogenic edema 7.? History of seizures secondary to brain tumor -witness seizure prior to ED -continue Keppra 1000 mg b.i.d. per home routine Hospital Course: Admitted for left lower lobe PNA and given IV abx which caused a skin rash so changed to po which she tolerated better. Was having left-sided pleuritic pain so given script for lidocaine patch and tramadol at discharge for this. CTPA noted small right sided PE, but patient unable to be on anticoag due to GBM. She will continue po abx to complete 5 days of Augmentin and doxy. Time Spent with Patient Time spent: Greater than 30 minutes Exam Vital Signs (past 8 hours): - 11/14/22 00:11 11/14/22 00:11 11/14/22 03:51 Temperature 98.7 F 98.2 F Pulse Rate 73 86 Respiratory Rate 18 18 Blood Pressure 88/62 L 112/75 Pulse Oximetry 97 97 98 Oxygen Delivery Method Room Air Oxygen Flow Rate 0 0 0 11/14/22 03:51 Temperature Pulse Rate Respiratory Rate Blood Pressure Pulse Oximetry 98 Oxygen Delivery Method Room Air Oxygen Flow Rate 0 Oxygen Delivery Method Room Air Oxygen Flow Rate 0 Narrative Exam Narrative: General: Alert female lying in bed in no acute distress HEENT: Pupils equal and reactive, conjunctiva clear, sclera anicteric, EOMI Neck: Supple without lymphadenopathy Lungs: Clear to auscultation Heart: Irregularly irregular without murmur Abdomen: Soft, nontender, no mass or HSM Extremities: No peripheral edema Neurological: Oriented person and place, definite left-sided weakness and numbness with left side strength 3/5 in the arm and leg, right side strength and sensory intact Skin: Faint rash on upper ext's Objective Labs Result Diagrams: 11/13/22 05:02 11/13/22 05:02 Labs: Laboratory Results - last 24 hr 11/13/22 11:35 Troponin I < 0.012 [facility] Medical History (Updated 11/12/22 @ 18:35 by Karla Morfin DO) Chronic atrial fibrillation with RVR Glioblastoma Seizure Social History household members: spouse Smoking Status: Never smoker Discharge Plan Discharge Plan Patient Disposition: Home Health Service Provider Discharge Comment: You were admitted for a pneumonia and given antibiotics. You will need to complete 3 more days of oral antibiotics at home. I've sent a pain med called tramadol to help with your left sided rib pain as well as lidocaine patches. Discharge orders & Medications Prescriptions: New amoxicillin-pot clavulanate 875-125 mg Tablet 1 tab PO BID 3 Days Qty: 6 0RF Rx Instructions: start evening of 1214 doxycycline hyclate 100 mg Tablet 100 mg PO BID 3 Days Qty: 6 0RF Rx Instructions: start evening of 1214 tramadol 50 mg Tablet 50 mg PO TID PRN (Reason: Pain, Moderate (4-6)) Qty: 30 0RF lidocaine 5 % Adhesive Patch,Medicated 1 patch topical DAILY Qty: 30 0RF sennosides 17.2 mg tablet 17.2 mg PO BID PRN (Reason: Constipation) Qty: 60 0RF benzonatate 100 mg capsule 100 mg PO TID PRN (Reason: cough) Qty: 60 0RF Continued DILTIAZEM HCL (Diltzac ER) 30 mg PO QPM Qty: 0 dexamethasone 2 mg tablet 2 mg PO DAILY Label Comments: TAKE ONE TABLET BY MOUTH ONE TIME DAILY levetiracetam 1,000 mg tablet 1,000 mg PO BID Label Comments: TAKE ONE TABLET BY MOUTH TWICE DAILY Follow up/Referrals: Miscellaneous,DoctorMD [Non-Staff] - Hola Larson MD [Primary Care Provider] - 2 Weeks Visit Report/Discharge Packet Instructions: DI for Pneumonia -- Adult Discharge Data Primary Care Provider: Hola Larson
[2022-11-14 08:00] VITALS: BP 121/81; PULSE 89; RESP 18; TEMP 36.7; O2SAT 94; O2SAT 97
[2022-11-14] MEDS: dilTIAZem CD 120 MG CAP PO (09:43)
[2022-11-14] MEDS: AMOXICILLIN/CLAV 875/125 MG 1 TAB PO (09:43)
[2022-11-14] MEDS: levETIRAcetam 250 MG TABLET 1000 MG PO (09:43)
[2022-11-14] MEDS: DOXYCYCLINE HYCLATE 100 MG TABLET PO (09:43)
[2022-11-14] MEDS: dexAMETHasone 1 MG TABLET 2 MG PO (09:43)
[2022-11-14] MEDS: IBUPROFEN 600 MG TABLET PO (09:43)
[2022-11-14] MEDS: SODIUM CHLORIDE 0.9% FLUSH 10 ML IV (09:44)
[2022-11-14 12:00] VITALS: BP 107/61; PULSE 66; RESP 18; TEMP 36.7; O2SAT 94; O2SAT 97
--- NOTE | 2022-11-14 12:08 | CM.DPC ---
DCP Discharge Home Per MD, pt's bilateral pneumonia and PE resolving and medically stable to d/c home today and no identified barriers to discharge. Per ED SILVER LAP MACHINE TENDER, met with pt and spouse Riley and discussed comfort care/Hospice and pt stated that she was not yet ready for Hospice at this time and wanted to continue pursuing tx. Spouse had confided in ED SILVER LAP MACHINE TENDER that he is aware pt will likely need Hospice in the near future. LUPILLO met bedside with pt and explained role and she confirms spouse Riley works M,W,,Sat and cannot be available 24/06. Pt has been doing okay with limited support from Riley who prepares and feeds pt breakfast, prepares lunch that pt will be able to eat on her own, prepares dinner once home from work, and helps shower and exercise patient. Pt states that recently due to brain swelling from her cancer her left side has gone numb and pt is unable to use her left hand much and cannot stand or ambulate. Pt has a walker and w/c at home and states her mother in law checks on her regularly or when needed when spouse is at work and that her niece from [place] comes up to assist as much as she can. Pt is worried that her spouse is getting CG burnout from worry and stress about trying to keep his job but wanting to take care of her. Pt states she has a [facility] TARIK Mcwilliams [phone] who is trying to assist her with getting resources. LUPILLO inquired about if pt has applied for [facility] and she is not sure if they completed the application and where she is in the process but requested SW to call Christianne to determine. SW called Christianne who confirms she is with [facility] and attempting to assist pt but will need to confirm with pt that she can discuss info with LUPILLO. LUPILLO faxed [facility] Expedited Referral towards [facility] just in case. SW received a call from [facility] stating they are open to service with pt but have concerns as she is home alone during the day when spouse at work and do not feel pt has enough support. LUPILLO inquired if their HH SILVER LAP MACHINE TENDER could assist with getting CGs in the home and [facility] will follow up with their team as SW expressed the difficulty with getting in-home support from the hospital and would be great for HH SILVER LAP MACHINE TENDER to follow up on. LUPILLO faxed Resume Orders to [facility] . Plan: Patient to d/c home today via POV and Resume [facility] and [facility] to follow up with pt after discharge. DANYELL Kowalski
[2022-11-14] MEDS: TRAMADOL 50 MG TABLET PO (13:22)
[2022-11-14] MEDS: LIDOCAINE PATCH 1 EACH ADH..PATCH TOP (13:23)
== END 2022-11-14 14:05 | disposition home health service (06) | DRG 137 ==
LOC: ED 08:17 → AC 15:27
PROVIDERS: Internal Medicine; Admitting Provider Student in an Organized Health Care Education/Training Program; Emergency Provider Emergency Medicine; PCP Internal Medicine; Referring Provider Emergency Medicine; Visit Provider Student in an Organized Health Care Education/Training Program
DX: J15.6 Pneumonia due to other Gram-negative bacteria (principal); I26.99 Other pulmonary embolism without acute cor pulmonale; I48.20 Chronic atrial fibrillation, unspecified; I31.39 Other pericardial effusion (noninflammatory); G81.92 Hemiplegia, unspecified affecting left dominant side; C71.9 Malignant neoplasm of brain, unspecified; R60.9 Edema, unspecified; D84.821 Immunodeficiency due to drugs; T38.0X5A Adverse effect of glucocorticoids and synthetic analogues, initial encounter; Z79.52 Long term (current) use of systemic steroids; Z20.822 Contact with and (suspected) exposure to COVID-19
CPT/HCPCS: 36415; 70470; 71045; 71275; 74177; 80053; 81003; 81015; 82550; 83605; 83690; 83880; 84145; 84484; 85007; 85025; 85610; 85730; 87635; 87797; 93005; 93010; 96365; 96367; 96375; 96376; 99284; 99291; C9803; J1170; J1200; J2405; J2543; J2930; Q9967

== ENCOUNTER 2022-11-22 09:59 | Observation (INO) | payer OTHER, MEDICAID, SELFPAY ==
[2022-11-13 12:10] VITALS: BMI 21.9
[2022-11-22] VITALS (21 sets, daily range): BP systolic 90–116; BP diastolic 56–80; PULSE 79–130; RESP 15–23; TEMP 36.2–36.9; O2SAT 96–100; BMI 18.8
--- NOTE | 2022-11-22 10:32 | PC.NURSE ---
Patient reports she is currently being treated for brain cancer, last treatment approximately 2 weeks ago. Released from hospital 10 days prior, pt was being treated for pneumonia and left side PE, reports left rib pain similar to when she came in for the PE. Pt reports dizziness at baseline and feels dizzy now, also nausea. Pt recently started on Eliquis. Pt recently finished Doxycycline yesterday and states the last dose made her very nauseaus. Pt also completed Macrobid yesterday for a UTI.
--- NOTE | 2022-11-22 10:40 | DI.RAD.S_ITS ---
PROCEDURE: XR CHEST 1V INDICATIONS: chest pain TECHNIQUE: One view of the chest was acquired. COMPARISON: [facility], CT, CT ANGIO CHEST PE PROTOCOL, 11/12/2022, 9:32. [facility], CT, CT ABDOMEN PELVIS W CON, 11/12/2022, 9:32. [facility], CR, XR CHEST 1V, 11/12/2022, 8:19. [facility], CR, XR CHEST 1V, 08/22/2021, 13:02. FINDINGS: Surgical changes and devices: None. Lungs and pleura: Lungs appear clear. Trace left pleural effusion. No pneumothorax. Mediastinum: Mediastinal contours appear unchanged. Heart size is normal. Bones and chest wall: No suspicious bony lesions. Overlying soft tissues appear unremarkable. IMPRESSION: Trace left pleural effusion. Lungs appear clear. Dictated by: Benedicto Hager M.D. on 11/22/2022 at 11:43 Approved by: Benedicto Hager M.D. on 11/22/2022 at 11:45
[2022-11-22 10:48] LABS: Add Manual Diff / Slide Review NO; Basophils Absolute Auto 0 /uL (0-100); Basophils Percent Auto 0.1 % (0-2); Eosinophils Absolute Auto 0 /uL (0-450); Eosinophils Percent Auto 0.3 % (2-4); Hemoglobin 11.5 g/dL (12.0-16.0); Lymphocytes Absolute Auto 1000 /uL (1100-4500); Lymphocytes Percent Auto 19.9 % (25-40); Mean Corpuscular HGB Conc 33.8 % (30-36); Mean Corpuscular Hemoglobin 34.9 PG (26-34); Mean Corpuscular Volume 103.1 fL (80-100); Monocytes Absolute Auto 300 /uL (0-900); Neutrophils Absolute Auto 3700 /uL (1500-7000); Neutrophils Percent Auto 73.7 % (50-75); Platelet Count 135 X10^3/uL (150-400); Red Blood Cell Count 3.29 X10^6/uL (4.0-5.2); Red Cell Distribution Width 16.2 % (11.6-14.8)
--- NOTE | 2022-11-22 10:50 | DI.CT.S_ITS ---
PROCEDURE: CT HEAD/BRAIN WO CON INDICATIONS: syncope, on eliquis for PE, has brain mets from cancer TECHNIQUE: Noncontrast 4.5 mm thick angled axial sections acquired from the foramen magnum to the vertex, with coronal and sagittal reformats. For radiation dose reduction, the following was used: automated exposure control, adjustment of mA and/or kV according to patient size. COMPARISON: [facility], MR, MR BRAIN WITH/WITHOUT CONTRAST, 11/06/2022, 12:01. [facility], CT, CT HEAD/BRAIN WO/W CON, 11/12/2022, 9:32. FINDINGS: Image quality: Fair. Repeat acquisition. CSF spaces: Basal cisterns are patent. No extra-axial fluid collections. Ventricles are normal in size and shape. Brain: No midline shift. No intracranial hemorrhage is seen. Hypodensity in the right caudate lobe, basal ganglia, right middle cranial fossa, and frontal temporal parietal lobes are unchanged. Skull and face: Right lateral craniotomy. Calvarium and visualized facial bones are intact, without suspicious lesions. Sinuses: Visualized sinuses and mastoids are clear. IMPRESSION: Image quality is fair despite repeat acquisition. No interval changes appreciated. No hyperdense blood products are seen. Similar areas of hypodensity in the right cerebral hemisphere. Dictated by: Benedicto Hager M.D. on 11/22/2022 at 11:35 Approved by: Benedicto Hager M.D. on 11/22/2022 at 11:43
[2022-11-22 11:00] LABS: INR 1.1 (0.9-1.3); Prothrombin Time 13.1 SECONDS (10.1-12.7)
[2022-11-22 11:02] LABS: PTT Partial Thromboplastin Tim 23 SECONDS (26-36)
[2022-11-22 11:04] LABS: Alanine Aminotransferase 21 IU/L (<35); Albumin 3.2 g/dL (3.5-5.0); Alkaline Phosphatase 76 U/L (38-126); Aspartate Aminotransferase 18 IU/L (14-36); Bilirubin Total 0.7 mg/dL (0.2-1.3); Blood Urea Nitrogen 14 mg/dL (7-17); Calcium 7.9 mg/dL (8.4-10.2); Carbon Dioxide 28 mmol/L (22-32); Chloride 104 mmol/L (98-107); Creatine Kinase < 20 U/L (30-135); Estimated Glomerular Filt Rate > 60 mL/min (>60); Globulin 3.1 g/dL (1.7-4.1); Glucose 117 mg/dL (80-110); HEMOLYSIS < 15 (0-50); Lactate (Lactic Acid) 1.8 mmol/L (0.7-2.1); Lipase 120 U/L (23-300); Potassium 3.3 mmol/L (3.4-5.1); Sodium 137 mmol/L (137-145); Total Protein 6.3 g/dL (6.3-8.2)
[2022-11-22 11:15] LABS: Troponin I < 0.012 ng/mL (0.01-0.034)
[2022-11-22 11:56] LABS: NT-proBNP (BNP-Adult 18+) 333 pg/mL (<125)
--- NOTE | 2022-11-22 11:56 | ED_ITS ---
HPI - Syncope General Chief Complaint: Syncope Stated Complaint: syncope Time Seen by Provider: 11/22/22 10:41 Source: patient and EMS Mode of arrival: EMS Limitations: no limitations History of Present Illness HPI narrative: This is a 62 year old female with known chronic atrial fibrillation recent influenza and pneumonia, glioblastoma who has received chemotherapy, radiation and is currently on around 4 or 5 of Avastatin. She is also on dexamethasone and Keppra as well as recent pulmonary emboli on the left focal acute pulmonary embolus at the posterior basal segment of the right lower lobe pulmonary artery diagnosed on 11/12/2022. Patient was started on Eliquis about 3 days ago at 5 mg p.o. b.i.d. by her pedigree tracer for her pulmonary emboli she had been seen and hospitalized here at [facility] but they had not started anticoagulation secondary to concerns of intracranial bleeding from her g lioblastoma. Patient presents today for feeling generally unwell and weak for the past 24 hours, she is had nausea, some left chest discomfort and states today she was on the toilet, urinated her went to get her up off the toilet as she is requiring assistance secondary to numbness and weakness on the left side from her glioblastoma. She had a loss of consciousness or syncopal episode that lasted a short period of time and her moved her from the toilet to the other room before she regained consciousness. She did not fall or hit her head, she denies headache or neck pain. Patient has nausea but no vomiting. Some very small amount of shortness of breath she states, no swelling in her extremities. No additional syncopal episodes. Related Data Home Medications Medication Instructions Recorded Confirmed DILTIAZEM HCL (Diltzac ER) 30 mg PO QPM ##0 12/08/12 11/22/22 dexamethasone 2 mg tablet 2 mg PO DAILY 11/12/22 11/22/22 levetiracetam 1,000 mg tablet 1,000 mg PO BID 11/12/22 11/22/22 apixaban 5 mg tablet (Eliquis) 5 mg PO BID 11/22/22 11/22/22 Previous Rx's Medication Instructions Recorded lidocaine 5 % topical patch 1 patch topical DAILY #30 ea 11/14/22 tramadol 50 mg tablet 50 mg PO TID PRN Pain, Moderate 11/14/22 (4-6) #30 tabs Allergies Allergy/AdvReac Type Severity Reaction Status Date / Time acetaminophen Allergy Rash Verified 11/22/22 13:11 cephalexin Allergy Hives Verified 11/22/22 13:11 ciprofloxacin Allergy Hives Verified 11/22/22 13:11 codeine Allergy ITCHING Verified 11/22/22 13:11 diazepam Allergy Verified 11/22/22 13:11 fluconazole Allergy Verified 11/22/22 13:11 Gadolinium-Containing Allergy Verified 11/22/22 13:11 Contrast Medi levofloxacin [From Levaquin] Allergy Verified 11/22/22 13:11 morphine Allergy ITCHING Verified 11/22/22 13:11 piperacillin [From Zosyn] Allergy Rash Verified 11/22/22 13:11 Sulfa (Sulfonamide Allergy Verified 11/22/22 13:11 Antibiotics) tazobactam [From Zosyn] Allergy Rash Verified 11/22/22 13:11 timolol Allergy Verified 11/22/22 13:11 amoxicillin [From Augmentin] AdvReac Diarrhea Verified 11/22/22 13:11 clavulanic acid AdvReac Diarrhea Verified 11/22/22 13:11 [From Augmentin] doxycycline AdvReac Nausea Verified 11/22/22 13:11 epinephrine AdvReac Verified 11/22/22 13:11 Influenza Virus Vaccines AdvReac Verified 11/22/22 13:11 omeprazole AdvReac Verified 11/22/22 13:11 valacyclovir AdvReac Palpitation Verified 11/22/22 13:11 s Review of Systems Review of Systems ROS Unobtainable: All systems reviewed & are unremarkable except as noted in HPI and below Patient History Medical History Chronic atrial fibrillation with RVR Glioblastoma Seizure Surgical History Hx of craniotomy Family History Unknown Glioblastoma Brother Myocardial infarction Mother Congestive heart failure Father Congestive heart failure Social History household members: spouse Smoking Status: Never smoker Smoking Status: Never smoker alcohol intake frequency: holidays/special occasions only Substance Use Type: does not use Exam Narrative Exam Narrative: GEN: well nourished, well appearing female, alert and oriented x 3, patient appears to be in mild distress. HEENT: Atraumatic, pupils are equal round reactive to light, extraocular movements are intact, nares are clear HEART: Regular rate and rhythm without murmur, clicks, rubs. No carotid bruits, pulses are equal in upper and lower extremities LUNGS:Lungs clear to auscultation, no wheezes, rales, crackles, chest moves symmetrically ABD:bowel sounds normal, soft, non-tender, no guarding, rebound, rigidity, no masses noted, no hepatosplenomegaly :No CVA tenderness MSCL: Non-tender, no muscle atrophy, Left sided weakness. NEURO:CN 2-12 intact, sensation normal. Initial Vital Signs Initial Vital Signs: Vital Signs Temperature 98.4 F 11/22/22 10:19 Pulse Rate 85 11/22/22 10:19 Respiratory Rate 18 11/22/22 10:19 Blood Pressure 102/68 11/22/22 10:19 Pulse Oximetry 98 11/22/22 10:19 Oxygen Delivery Method 11/22/22 10:19 Course Orders Ordered: Acetaminophen (Acetaminophen 325 Mg Tablet) 650 mg PO Q6H PRN PRN Reason: Fever/Mild Pain (1-3) Apixaban (Apixaban 5 Mg Tablet) 5 mg PO BID [facility] Last Admin: 11/22/22 20:51 Dose: 5 mg Documented By: OW Azithromycin (Azithromycin 250 Mg Tablet) 500 mg PO DAILY [facility] Benzonatate (Benzonatate 100 Mg Capsule) 100 mg PO TID PRN PRN Reason: cough Dexamethasone (Dexamethasone 1 Mg Tablet) 2 mg PO DAILY [facility] Diltiazem HCl (Diltiazem 30 Mg Tablet) 30 mg PO TID [facility] Cefepime HCl 1 gm/ Sodium (Chloride) 100 mls @ 200 mls/hr IV Q12H [facility] Last Admin: 11/22/22 23:31 Dose: 200 mls/hr Documented By: OW Levetiracetam (Levetiracetam 250 Mg Tablet) 1,000 mg PO BID [facility] Last Admin: 11/22/22 20:50 Dose: 1,000 mg Documented By: OW Lidocaine (Lidocaine Patch 1 Each Adh..Patch) 1 each TOP DAILY [facility] Lidocaine (Remove Lidocaine Patch) 1 each TOP BEDTIME [facility] Last Admin: 11/22/22 21:03 Dose: 1 each Documented By: YOUNG Linezolid (Linezolid 600 Mg Tablet) 600 mg PO BID [facility] Last Admin: 11/22/22 23:31 Dose: 600 mg Documented By: YOUNG Naloxone HCl (Naloxone 0.4 Mg/Ml Vial) 0.2 mg IV Q2MIN PRN PRN Reason: Opiate Reversal Ondansetron HCl (Ondansetron 4 Mg/2 Ml Inj) 4 mg IV Q8HR PRN PRN Reason: Nausea And Vomiting Sennosides (Sennosides 8.6 Mg Tablet) 17.2 mg PO BID PRN PRN Reason: Constipation Tramadol HCl (Tramadol 50 Mg Tablet) 50 mg PO TID PRN PRN Reason: Pain, Moderate (4-6) Last Admin: 11/22/22 20:50 Dose: 50 mg Documented By: YOUNG Discontinued Medications Apixaban (Apixaban 5 Mg Tablet) 5 mg PO NOW ONE Stop: 11/22/22 15:04 Last Admin: 11/22/22 15:29 Dose: 5 mg Documented By: AUDREY Dexamethasone (Dexamethasone 4 Mg Tablet) 2 mg PO NOW ONE Stop: 11/22/22 15:04 Last Admin: 11/22/22 15:29 Dose: 2 mg Documented By: AUDREY Diltiazem HCl (Diltiazem 30 Mg Tablet) 30 mg PO Q6H PRN PRN Reason: Tachycardia Heparin Sodium (Porcine) (Heparin 5,000 Unit/Ml Vial) 4,400 unit 80 unit/kg (4400 unit) IV NOW ONE Stop: 11/22/22 13:26 Last Admin: 11/22/22 13:40 Dose: Not Given Documented By: FRANKIE Heparin Sodium/Dextrose (Heparin Drip) 25,000 unit in 500 mls @ 24 mls/hr IV CONT JIMMIE; Protocol Potassium Chloride (Potassium Chloride 20 Meq Tab) 40 meq PO Q6H JIMMIE Stop: 11/23/22 00:01 Last Admin: 11/22/22 20:50 Dose: 40 meq Documented By: YOUNG Potassium Chloride (Potassium Chloride 20 Meq Tab) 40 meq PO Q6H JIMMIE Stop: 11/23/22 01:31 Last Admin: 11/23/22 01:25 Dose: 40 meq Documented By: YOUNG Vital Signs Vital signs: Vital Signs - 8 hr 11/22/22 10:19 11/22/22 11:02 11/22/22 11:27 Temperature 98.4 F Pulse Rate 85 84 90 Respiratory Rate 18 21 20 Blood Pressure 102/68 106/76 Pulse Oximetry 98 100 99 Oxygen Delivery Method Room Air Room Air 11/22/22 11:27 11/22/22 11:30 11/22/22 11:31 Temperature Pulse Rate 88 84 Respiratory Rate 15 16 Blood Pressure 108/76 Pulse Oximetry 96 98 Oxygen Delivery Method 11/22/22 11:31 11/22/22 12:00 11/22/22 12:00 Temperature Pulse Rate 90 Respiratory Rate Blood Pressure 90/67 104/56 L Pulse Oximetry 99 Oxygen Delivery Method Room Air 11/22/22 12:36 11/22/22 13:00 11/22/22 13:03 Temperature Pulse Rate 130 H 85 Respiratory Rate 19 Blood Pressure 115/74 Pulse Oximetry 99 Oxygen Delivery Method 11/22/22 13:03 11/22/22 13:30 11/22/22 13:30 Temperature Pulse Rate 89 81 Respiratory Rate 15 19 Blood Pressure 102/68 Pulse Oximetry 98 97 Oxygen Delivery Method Nasal Cannula Room Air 11/22/22 14:00 11/22/22 14:00 Temperature Pulse Rate 80 Respiratory Rate 21 Blood Pressure 107/70 Pulse Oximetry 98 Oxygen Delivery Method Room Air MDM - Syncope Lab Data Result diagrams: 11/22/22 10:31 11/22/22 10:31 Labs: Lab Results 11/22/22 11/22/22 11/22/22 Range/Units 10:31 10:31 10:31 WBC 5.0 (4.5-11.0) X10^3/uL RBC 3.29 L (4.0-5.2) X10^6/uL Hgb 11.5 L (12.0-16.0) g/dL Hct 34.0 L (36-46) % MCV 103.1 H (80-100) fL MCH 34.9 H (26-34) PG MCHC 33.8 (30-36) % RDW 16.2 H (11.6-14.8) % Plt Count 135 L (150-400) X10^3/uL Neut % (Auto) 73.7 (50-75) % Lymph % (Auto) 19.9 L (25-40) % [place] % (Auto) 6.0 (3-14) % Eos % (Auto) 0.3 L (2-4) % Baso % (Auto) 0.1 (0-2) % Neut # (Auto) 3700 (6464-0366) /uL Lymph # (Auto) 1000 L (3776-8562) /uL [place] # (Auto) 300 (0-900) /uL Eos # (Auto) 0 (0-450) /uL Baso # (Auto) 0 (0-100) /uL PT 13.1 H (10.1-12.7) SECONDS INR 1.1 (0.9-1.3) APTT 23 L (26-36) SECONDS Sodium 137 (137-145) mmol/L Potassium 3.3 L (3.4-5.1) mmol/L Chloride 104 (98-107) mmol/L Carbon Dioxide 28 (22-32) mmol/L BUN 14 (7-17) mg/dL Creatinine 0.56 (0.52-1.04) mg/dL Estimated GFR > 60 (>60) mL/min BUN/Creatinine Ratio 25.0 H (6-22) Glucose 117 H (80-110) mg/dL Lactate (0.7-2.1) mmol/L Calcium 7.9 L (8.4-10.2) mg/dL Magnesium 2.0 (1.6-2.3) mg/dL Total Bilirubin 0.7 (0.2-1.3) mg/dL AST 18 (14-36) IU/L ALT 21 (<35) IU/L Alkaline Phosphatase 76 (38-126) U/L Total Creatine Kinase < 20 L (30-135) U/L CK-MB (CK-2) TNP CK-MB (CK-2) Rel Index TNP Troponin I < 0.012 (0.01-0.034) ng/mL NT-Pro-B Natriuret Pep (<125) pg/mL Total Protein 6.3 (6.3-8.2) g/dL Albumin 3.2 L (3.5-5.0) g/dL Globulin 3.1 (1.7-4.1) g/dL Albumin/Globulin Ratio 1.0 (1.0-2.8) Lipase 120 (23-300) U/L Procalcitonin (<0.5) ng/mL SARS-CoV-2 (PCR) (Negative) Influenza A (RT-PCR) (NEGATIVE) Influenza B (RT-PCR) (NEGATIVE) RSV (PCR) (Negative) 11/22/22 11/22/22 11/22/22 Range/Units 10:31 10:31 12:49 WBC (4.5-11.0) X10^3/uL RBC (4.0-5.2) X10^6/uL Hgb (12.0-16.0) g/dL Hct (36-46) % MCV (80-100) fL MCH (26-34) PG MCHC (30-36) % RDW (11.6-14.8) % Plt Count (150-400) X10^3/uL Neut % (Auto) (50-75) % Lymph % (Auto) (25-40) % [place] % (Auto) (3-14) % Eos % (Auto) (2-4) % Baso % (Auto) (0-2) % Neut # (Auto) (2529-9831) /uL Lymph # (Auto) (6161-9176) /uL [place] # (Auto) (0-900) /uL Eos # (Auto) (0-450) /uL Baso # (Auto) (0-100) /uL PT (10.1-12.7) SECONDS INR (0.9-1.3) APTT (26-36) SECONDS Sodium (137-145) mmol/L Potassium (3.4-5.1) mmol/L Chloride (98-107) mmol/L Carbon Dioxide (22-32) mmol/L BUN (7-17) mg/dL Creatinine (0.52-1.04) mg/dL Estimated GFR (>60) mL/min BUN/Creatinine Ratio (6-22) Glucose (80-110) mg/dL Lactate 1.8 (0.7-2.1) mmol/L Calcium (8.4-10.2) mg/dL Magnesium (1.6-2.3) mg/dL Total Bilirubin (0.2-1.3) mg/dL AST (14-36) IU/L ALT (<35) IU/L Alkaline Phosphatase (38-126) U/L Total Creatine Kinase (30-135) U/L CK-MB (CK-2) CK-MB (CK-2) Rel Index Troponin I (0.01-0.034) ng/mL NT-Pro-B Natriuret Pep 333 H (<125) pg/mL Total Protein (6.3-8.2) g/dL Albumin (3.5-5.0) g/dL Globulin (1.7-4.1) g/dL Albumin/Globulin Ratio (1.0-2.8) Lipase (23-300) U/L Procalcitonin (<0.5) ng/mL SARS-CoV-2 (PCR) Negative (Negative) Influenza A (RT-PCR) Flu a negative (NEGATIVE) Influenza B (RT-PCR) Flu b negative (NEGATIVE) RSV (PCR) Negative (Negative) 11/22/22 11/22/22 Range/Units 14:00 14:00 WBC (4.5-11.0) X10^3/uL RBC (4.0-5.2) X10^6/uL Hgb (12.0-16.0) g/dL Hct (36-46) % MCV (80-100) fL MCH (26-34) PG MCHC (30-36) % RDW (11.6-14.8) % Plt Count (150-400) X10^3/uL Neut % (Auto) (50-75) % Lymph % (Auto) (25-40) % [place] % (Auto) (3-14) % Eos % (Auto) (2-4) % Baso % (Auto) (0-2) % Neut # (Auto) (6063-0054) /uL Lymph # (Auto) (5119-2299) /uL [place] # (Auto) (0-900) /uL Eos # (Auto) (0-450) /uL Baso # (Auto) (0-100) /uL PT (10.1-12.7) SECONDS INR (0.9-1.3) APTT (26-36) SECONDS Sodium (137-145) mmol/L Potassium (3.4-5.1) mmol/L Chloride (98-107) mmol/L Carbon Dioxide (22-32) mmol/L BUN (7-17) mg/dL Creatinine (0.52-1.04) mg/dL Estimated GFR (>60) mL/min BUN/Creatinine Ratio (6-22) Glucose (80-110) mg/dL Lactate (0.7-2.1) mmol/L Calcium (8.4-10.2) mg/dL Magnesium (1.6-2.3) mg/dL Total Bilirubin (0.2-1.3) mg/dL AST (14-36) IU/L ALT (<35) IU/L Alkaline Phosphatase (38-126) U/L Total Creatine Kinase (30-135) U/L CK-MB (CK-2) CK-MB (CK-2) Rel Index Troponin I < 0.012 (0.01-0.034) ng/mL NT-Pro-B Natriuret Pep (<125) pg/mL Total Protein (6.3-8.2) g/dL Albumin (3.5-5.0) g/dL Globulin (1.7-4.1) g/dL Albumin/Globulin Ratio (1.0-2.8) Lipase (23-300) U/L Procalcitonin 0.09 (<0.5) ng/mL SARS-CoV-2 (PCR) (Negative) Influenza A (RT-PCR) (NEGATIVE) Influenza B (RT-PCR) (NEGATIVE) RSV (PCR) (Negative) Urine Dip Bedside Urine Glucose Negative Bedside Urine Bilirubin - Negative Bedside Urine Ketone - Negative Urine Specific [place] 1.010 Bedside Urine Occult Blood - Negative Bedside Urine pH 6.5 Bedside Urine Protein - Negative Bedside Urine Urobilinogen - Negative Bedside Urine Nitrite - Negative Bedside Urine Leukocytes - Negative Esterase Imaging Data CT scan - chest: Radiologist's Impression: Close Chest CTA (Signed) Zenia Callejas - 11/22/[address] (Signed) Call,Benedicto - 11/22/22 Chest X-Ray (Signed) Call,Benedicto - 11/22/[address] [address] [address] Scan Report Signed Patient: Shaye Spaulding MR#: [id number] : 1960 Acct:[id number] Age/Sex: 62 / F Date of Service: 11/22/22 Loc: ED Accession Number: [id number] ?? Procedure: CT angio chest PE protocol Ordering Provider: Dorothy Waters D.O. PROCEDURE:? CT ANGIO CHEST PE PROTOCOL ? INDICATIONS:? recent pna, pe on 11/22/22 w. syncope today ? TECHNIQUE:? After the administration of intravenous contrast, 2 mm thick sections acquired from the pulmonary apices to the posterior costophrenic angles.? 3-dimensional maximum intensity projection (MIP) coronal and sagittal reformats were then acquired through the thorax.? For radiation dose reduction, the following was used:? automated exposure control, adjustment of mA and/or kV according to patient size.? ? COMPARISON:? [facility], CT, CT ANGIO CHEST PE PROTOCOL, 11/12/2022, 9:32. ? FINDINGS:? Image quality:? Excellent.? ? Pulmonary arteries:? There is now pulmonary embolus involving both lateral and anterior segmental arteries of the right middle lobe.? There has been interval decrease in size of the posterior basal segment right lower lobe pulmonary artery thrombus.? No left-sided pulmonary emboli. ? Lungs and pleura:? There are small posterior bilateral airspace opacities, left larger than right and a small left pleural effusion.? Wedge-shaped opacity at the right lung base is likely small pulmonary infarct.? Mild bronchial wall thickening in both lower lobes. ? Mediastinum:? Heart size is mildly enlarged, with a stable mild to moderate sized pericardial effusion.? No septal bowing to suggest right heart strain.? No mediastinal or hilar adenopathy.? Thoracic aorta is normal in caliber and enhancement.? Esophagus is normal in caliber, without hiatal hernia.? ? Bones and chest wall:? No suspicious bony lesions.? There is a chronic compression fracture of T12.? Thyroid gland is normal.? No axillary or supraclavicular adenopathy.? ? Abdomen:? Visualized upper abdominal solid organs appear normal in the early arterial phase of enhancement.? ? IMPRESSION:? ? 1. New pulmonary emboli seen in the lateral and anterior segmental arteries of the right middle lobe.? ? 2. Slight interval decrease in size of posterior basal right lower lobe pulmonary embolus.? ? 3. Mild decrease in size of right posterior pulmonary infarct and effusion. ? 4. Further consolidation of small left posterior lower lobe pneumonia with slight increased size of fusion.? ? Dictated by: Zenia Callejas M.D. on 11/22/2022 at 13:07 ? ? Approved by: Zenia Callejas M.D. on 11/22/2022 at 13:16?? CT scan - head: Radiologist's Impression: -Containing Contrast Medi, levofloxacin, morphine, piperacillin, Sulfa (Sulfonamide Antibiotics), tazobactam, timolol, amoxicillin, clavulanic acid, doxycycline, epinephrine, Influenza Virus Vaccines, omeprazole, valacyclovir (More??) Close Chest CTA (Signed) Zenia Callejas - 11/22/[address] (Signed) Call,Benedicto - 11/22/22 Chest X-Ray (Signed) Call,Benedicto - 11/22/22 Telemetry Strips 11/12/22 Chest X-Ray (Signed) Arnaud Griffin - 11/12/[address] (Signed) Arnaud Griffin - 11/12/22 Chest CTA (Signed) Arnaud Griffin - 11/12/22 Abdomen/Pelvis CT (Signed) Arnaud Griffin - 11/12/22 Chest X-Ray (Signed) Denton Mendez - 08/22/21 [facility]?[place] [address] CT Scan Report Signed Patient: Shaye Spaulding MR#: [id number] : 1960 Acct:[id number] Age/Sex: 62 / F Date of Service: 11/22/22 Loc: Accession Number: [id number] ?? Procedure: CT head/brain wo con Ordering Provider: Dorothy Waters D.O. PROCEDURE:? CT HEAD/BRAIN WO CON ? INDICATIONS:? syncope, on eliquis for PE, has brain mets from cancer ? TECHNIQUE:? Noncontrast 4.5 mm thick angled axial sections acquired from the foramen magnum to the vertex, with coronal and sagittal reformats.? For radiation dose reduction, the following was used:? automated exposure control, adjustment of mA and/or kV according to patient size.? ? COMPARISON:? [facility], MR, MR BRAIN WITH/WITHOUT CONTRAST, 11/06/2022, 12:01.? [facility], CT, CT HEAD/BRAIN WO/W CON, 11/12/2022, 9:32. ? FINDINGS:? Image quality:? Fair.? Repeat acquisition.? ? CSF spaces:? Basal cisterns are patent.? No extra-axial fluid collections.? Ventricles are normal in size and shape.? ? Brain:? No midline shift.? No intracranial hemorrhage is seen.? Hypodensity in the right caudate lobe, basal ganglia, right middle cranial fossa, and frontal temporal parietal lobes are unchanged.? ? Skull and face:? Right lateral craniotomy.? Calvarium and visualized facial bones are intact, without suspicious lesions.? ? Sinuses:? Visualized sinuses and mastoids are clear.? ? IMPRESSION:? Image quality is fair despite repeat acquisition. ? No interval changes appreciated.? No hyperdense blood products are seen.? [place]a lar areas of hypodensity in the right cerebral hemisphere. ? ? Dictated by: Benedicto Hager M.D. on 11/22/2022 at 11:35 ? ? Approved by: Benedicto Hager M.D. on 11/22/2022 at 11:43?? Chest x-ray: Radiologist's Impression: -Containing Contrast Medi, levofloxacin, morphine, piperacillin, Sulfa (Sulfonamide Antibiotics), tazobactam, timolol, amoxicillin, clavulanic acid, doxycycline, epinephrine, Influenza Virus Vaccines, omeprazole, valacyclovir (More??) Close Chest CTA (Signed) Zenia Callejas - 11/22/[address] (Signed) Benedicto Hager - 11/22/22 Chest X-Ray (Signed) Benedicto Hager - 11/22/22 Telemetry Strips 11/12/22 Chest X-Ray (Signed) Arnaud Griffin - 11/12/[address] (Signed) Arnaud Griffin - 11/12/22 Chest CTA (Signed) Arnaud Griffin - 11/12/22 Abdomen/Pelvis CT (Signed) Arnaud Griffin - 11/12/22 Chest X-Ray (Signed) Denton Mendez - 08/22/21 Launch?[address] [address] [address] Scan Report Signed Patient: Shaye Spaulding MR#: [id number] : 1960 Acct:[id number] Age/Sex: 62 / F Date of Service: 11/22/22 Loc: ED Accession Number: [id number] ?? Procedure: CT head/brain wo con Ordering Provider: Dorothy Waters D.O. PROCEDURE:? CT HEAD/BRAIN WO CON ? INDICATIONS:? syncope, on eliquis for PE, has brain mets from cancer ? TECHNIQUE:? Noncontrast 4.5 mm thick angled axial sections acquired from the foramen magnum to the vertex, with coronal and sagittal reformats.? For radiation dose reduction, the following was used:? automated exposure control, adjustment of mA and/or kV according to patient size.? ? COMPARISON:? [facility], MR, MR BRAIN WITH/WITHOUT CONTRAST, , 12:01.? [facility], CT, CT HEAD/BRAIN WO/W CON, 11/12/2022, 9:32. ? FINDINGS:? Image quality:? Fair.? Repeat acquisition.? ? CSF spaces:? Basal cisterns are patent.? No extra-axial fluid collections.? Ventricles are normal in size and shape.? ? Brain:? No midline shift.? No intracranial hemorrhage is seen.? Hypodensity in the right caudate lobe, basal ganglia, right middle cranial fossa, and frontal temporal parietal lobes are unchanged.? ? Skull and face:? Right lateral craniotomy.? Calvarium and visualized facial bones are intact, without suspicious lesions.? ? Sinuses:? Visualized sinuses and mastoids are clear.? ? IMPRESSION:? Image quality is fair despite repeat acquisition. ? No interval changes appreciated.? No hyperdense blood products are seen.? Similar areas of hypodensity in the right cerebral hemisphere. ? ? Dictated by: Benedicto Hager M.D. on 11/22/2022 at 11:35 ? ? Approved by: Benedicto Hager M.D. on 11/22/2022 at 11:43?? ECG Data Attestation: I personally reviewed and interpreted this ECG as follows: Prior ECG tracings: available for review Interpretation: atrial fibrillation with rate 88, qrs of 74, qtc 450. No acute ST elevation depression. Rate controlled AFib. Patient has prior EKG 11/13/22. MDM Narrative Medical decision making narrative: This is a 62 year old female with known glioblastoma, pulmonary emboli, small pericardial effusion and recent pneumonia. Patient appears to have developed 2 additional small emboli and possibly pulmonary infarct on CT angio, troponin is negative x2 BNP is slightly elevated at 330, patient does not appear to have dynamic EKG changes. She has been hypotensive but she states her systolic is typically around 105 which is similar to what we are having here in the department, patient's other labs do not show acute changes she has not been hypoxic she was noted to be on 2 L at 1 point but this was a documentation she has not received any oxygen. Discussed with Oncology, Dr. Gimenez (covering for her oncologist Dr. Kay) who recommends continuing her Eliquis 5 mg b.i.d. she is in a little bit of a difficult situation secondary to her glioblastoma increasing anticoagulation can cause intracranial bleeding, also she is only had about 3 days of anticoagulation at the most so she may have developed her new blood clots before she was started on Eliquis. She states that her pedigree tracer started the Eliquis at a lower dose secondary to concerns for bleeding but also for concerns for increasing clot burden which she is at risk for with her cancer diagnosis. Spoke with Dr. Maynard accepts for observation, discussed oncology recommendations. Patient does not appear to have worsening pneumonia, she re ceived 5mg dose of Eliquis here in the department as she did not have her morning dose, her daily dexamethasone which she had not had her morning dose. Discharge Plan Departure Patient Disposition: Admitted as Observation Clinical Impression: Pulmonary embolism and infarction, Glioblastoma, Anemia Admit Date/Time: 11/22/22 16:07 Admit Provider: Rigoberto Maynard
--- NOTE | 2022-11-22 12:09 | DI.CT.S_ITS ---
PROCEDURE: CT ANGIO CHEST PE PROTOCOL INDICATIONS: recent pna, pe on 11/22/22 w. syncope today TECHNIQUE: After the administration of intravenous contrast, 2 mm thick sections acquired from the pulmonary apices to the posterior costophrenic angles. 3-dimensional maximum intensity projection (MIP) coronal and sagittal reformats were then acquired through the thorax. For radiation dose reduction, the following was used: automated exposure control, adjustment of mA and/or kV according to patient size. COMPARISON: [facility], CT, CT ANGIO CHEST PE PROTOCOL, 11/12/2022, 9:32. FINDINGS: Image quality: Excellent. Pulmonary arteries: There is now pulmonary embolus involving both lateral and anterior segmental arteries of the right middle lobe. There has been interval decrease in size of the posterior basal segment right lower lobe pulmonary artery thrombus. No left-sided pulmonary emboli. Lungs and pleura: There are small posterior bilateral airspace opacities, left larger than right and a small left pleural effusion. Wedge-shaped opacity at the right lung base is likely small pulmonary infarct. Mild bronchial wall thickening in both lower lobes. Mediastinum: Heart size is mildly enlarged, with a stable mild to moderate sized pericardial effusion. No septal bowing to suggest right heart strain. No mediastinal or hilar adenopathy. Thoracic aorta is normal in caliber and enhancement. Esophagus is normal in caliber, without hiatal hernia. Bones and chest wall: No suspicious bony lesions. There is a chronic compression fracture of T12. Thyroid gland is normal. No axillary or supraclavicular adenopathy. Abdomen: Visualized upper abdominal solid organs appear normal in the early arterial phase of enhancement. IMPRESSION: 1. New pulmonary emboli seen in the lateral and anterior segmental arteries of the right middle lobe. 2. Slight interval decrease in size of posterior basal right lower lobe pulmonary embolus. 3. Mild decrease in size of right posterior pulmonary infarct and effusion. 4. Further consolidation of small left posterior lower lobe pneumonia with slight increased size of fusion. Dictated by: Zenia Callejas M.D. on 11/22/2022 at 13:07 Approved by: Zeina Callejas M.D. on 11/22/2022 at 13:16
--- NOTE | 2022-11-22 12:43 | PC.NURSE ---
Updated pt medical advocate over the phone with pt approval.
[2022-11-22 14:05] LABS: Influenza A - CEPHEID Flu A NEGATIVE (NEGATIVE); Influenza B - CEPHEID Flu B NEGATIVE (NEGATIVE); Respiratory Syncytial Virus Negative (Negative)
[2022-11-22 14:06] LABS: COVID-19 CEPHEID 4-PLEX PCR Negative (Negative)
[2022-11-22 14:37] LABS: Troponin I < 0.012 ng/mL (0.01-0.034)
[2022-11-22] MEDS: APIXABAN 5 MG TABLET PO ×2 (15:29→20:51)
[2022-11-22] MEDS: dexAMETHasone 4 MG TABLET 2 MG PO (15:29)
[2022-11-22] MEDS: levETIRAcetam 250 MG TABLET 1000 MG PO (20:50)
[2022-11-22] MEDS: TRAMADOL 50 MG TABLET PO (20:50)
[2022-11-22] MEDS: POTASSIUM CHLORIDE 20 MEQ TAB 40 MEQ PO (20:50)
--- NOTE | 2022-11-22 21:04 | P.HP_ITS ---
History of Present Illness History of Present Illness Date Patient Seen: 11/22/22 Time Patient Seen: 20:45 Chief complaint: syncope Narrative: Shaye Spaulding is a pleasant but unfortunate 62 y.o. female with known chronic atrial fibrillation recent influenza and pneumonia, glioblastoma who has received chemotherapy, radiation and is currently on round 4 of 5 of Avastatin.? She is also on dexamethasone and Keppra as well as recent pulmonary emboli on the left focal acute pulmonary embolus at the posterior basal segment of the right lower lobe pulmonary artery diagnosed on 11/12/2022.? Patient was started on Eliquis about 3 days ago at 5 mg p.o. b.i.d. by her production recorder for her pulmonary emboli she had been seen and hospitalized here at [facility] but was not started due to concerns for angioedema and concern for cerebral bleeding. She was just discharged on November 14. She re-presented today with nausea, shortness of breath, left-sided chest and rib pain and profound weakness requiring that her fully assist to and from the bathroom. She denies vomiting, cough, dysuria, diarrhea or constipation. She states that her left side is completely numb and with no strength. CT of the head ordered in the emergency department indicated no interval changes. CT of the chest and abdomen did report increased pulmonary emboli involving both lateral and anterior segmental arteries of the right middle lobe and increased consolidation in the left lower lung. She is afebrile, blood pressure 93/63 heart rate 85 respiratory rate 16 oxygen saturation of 99% on room air she weighs 54.4 kg with a BMI of just under 19. She is mildly anemic with a hemoglobin and hematocrit of 11.5 and 34 platelet count 135 potassium is 3.3 calcium 7.9 albumin is 3.2 flu panel and COVID-19 PCR are all negative. Family history is notable for cousin having a glioblastoma, both parents from congestive heart failure, mother at age 69 father age 90, brother age 64 of an RI. Patient History Medical History Chronic atrial fibrillation with RVR Glioblastoma Seizure Surgical History Hx of craniotomy Family & Social History Family History Unknown Glioblastoma Brother Myocardial infarction Mother Congestive heart failure Father Congestive heart failure Social History: household members spouse Safety & Behavioral: Feels Safe in Current Yes Environment Been Physically Hurt or No Threatened By a Person Tobacco & Substance use: Smoking Status Never smoker alcohol intake frequency holiday/special occasion Substance Use Type does not use Meds Home Medications and Allergies Home Medications Medication Instructions Recorded Confirmed Type DILTIAZEM HCL (Diltzac ER) 30 mg PO QPM ##0 12/08/12 11/22/22 History dexamethasone 2 mg tablet 2 mg PO DAILY 11/12/22 11/22/22 History levetiracetam 1,000 mg tablet 1,000 mg PO BID 11/12/22 11/22/22 History lidocaine 5 % topical patch 1 patch topical DAILY #30 ea 11/14/22 11/22/22 Rx tramadol 50 mg tablet 50 mg PO TID PRN Pain, Moderate 11/14/22 11/22/22 Rx (4-6) #30 tabs apixaban 5 mg tablet (Eliquis) 5 mg PO BID 11/22/22 11/22/22 History Allergies Allergy/AdvReac Type Severity Reaction Status Date / Time acetaminophen Allergy Rash Verified 11/22/22 13:11 cephalexin Allergy Hives Verified 11/22/22 13:11 ciprofloxacin Allergy Hives Verified 11/22/22 13:11 codeine Allergy ITCHING Verified 11/22/22 13:11 diazepam Allergy Verified 11/22/22 13:11 fluconazole Allergy Verified 11/22/22 13:11 Gadolinium-Containing Allergy Verified 11/22/22 13:11 Contrast Medi levofloxacin [From Levaquin] Allergy Verified 11/22/22 13:11 morphine Allergy ITCHING Verified 11/22/22 13:11 piperacillin [From Zosyn] Allergy Rash Verified 11/22/22 13:11 Sulfa (Sulfonamide Allergy Verified 11/22/22 13:11 Antibiotics) tazobactam [From Zosyn] Allergy Rash Verified 11/22/22 13:11 timolol Allergy Verified 11/22/22 13:11 amoxicillin [From Augmentin] AdvReac Diarrhea Verified 11/22/22 13:11 clavulanic acid AdvReac Diarrhea Verified 11/22/22 13:11 [From Augmentin] doxycycline AdvReac Nausea Verified 11/22/22 13:11 epinephrine AdvReac Verified 11/22/22 13:11 Influenza Virus Vaccines AdvReac Verified 11/22/22 13:11 omeprazole AdvReac Verified 11/22/22 13:11 valacyclovir AdvReac Palpitation Verified 11/22/22 13:11 s Review of Systems Review of Systems ROS: Yes All systems reviewed with the patient and are negative except as otherwise documented Exam Vital Signs (past 8 hours): - 11/22/22 13:30 11/22/22 13:30 11/22/22 14:00 Temperature Pulse Rate 81 Respiratory Rate 19 Blood Pressure 102/68 107/70 Pulse Oximetry 97 Oxygen Delivery Method Room Air Oxygen Flow Rate 11/22/22 14:00 11/22/22 14:30 11/22/22 14:30 Temperature Pulse Rate 80 79 Respiratory Rate 21 19 Blood Pressure 101/80 Pulse Oximetry 98 99 Oxygen Delivery Method Room Air Room Air Oxygen Flow Rate 11/22/22 15:00 11/22/22 15:00 11/22/22 15:30 Temperature Pulse Rate 84 85 Respiratory Rate 16 23 Blood Pressure 116/80 Pulse Oximetry 98 Oxygen Delivery Method Room Air Oxygen Flow Rate 11/22/22 15:31 11/22/22 15:31 11/22/22 16:00 Temperature Pulse Rate 88 91 H Respiratory Rate 20 23 Blood Pressure 91/69 Pulse Oximetry 98 100 Oxygen Delivery Method Room Air Room Air Oxygen Flow Rate 11/22/22 16:30 11/22/22 16:30 11/22/22 17:34 Temperature Pulse Rate 88 Respiratory Rate 17 Blood Pressure 106/56 L Pulse Oximetry 99 99 Oxygen Delivery Method Room Air Room Air Oxygen Flow Rate 11/22/22 17:34 11/22/22 18:00 Temperature 97.1 F L 97.1 F L Pulse Rate 85 85 Respiratory Rate 16 16 Blood Pressure 93/63 93/63 Pulse Oximetry 99 99 Oxygen Delivery Method Oxygen Flow Rate 0 Oxygen Delivery Method Room Air Oxygen Flow Rate 0 Narrative Exam Narrative: Gen: Alert, oriented, thin 62 y.o. female, NAD HEENT: normocephalic, atraumatic, conjunctiva clear, sclera non-icteric, oral mucosa pink and moist Neck: supple, full ROM, no JVD, trachea is midline Resp: Diminished lung sounds, non-labored breathing CV: RRR, no murmur or rubs Abd: soft, non-tender, normoactive BTs Skin: Generalized Petechiae no lesions or rashes, dry and intact Neuro: Alert and oriented X 4 w/no focal deficits. Speech clear and coherent. Extremities: Weak, unable to move left side,negative Allyson?s sign Psyche: normal mood and affect. Objective Labs Result Diagrams: 11/22/22 10:31 11/22/22 10:31 Labs: Laboratory Results - last 24 hr 11/22/22 11/22/22 11/22/22 10:31 10:31 10:31 WBC 5.0 RBC 3.29 L Hgb 11.5 L Hct 34.0 L MCV 103.1 H MCH 34.9 H MCHC 33.8 RDW 16.2 H Plt Count 135 L Neut % (Auto) 73.7 Lymph % (Auto) 19.9 L Refugio % (Auto) 6.0 Eos % (Auto) 0.3 L Baso % (Auto) 0.1 Neut # (Auto) 3700 Lymph # (Auto) 1000 L Refug[place] # (Auto) 300 Eos # (Auto) 0 Baso # (Auto) 0 PT 13.1 H INR 1.1 APTT 23 L Sodium 137 Potassium 3.3 L Chloride 104 Carbon Dioxide 28 BUN 14 Creatinine 0.56 Estimated GFR > 60 BUN/Creatinine Ratio 25.0 H Glucose 117 H Lactate Calcium 7.9 L Magnesium 2.0 Total Bilirubin 0.7 AST 18 ALT 21 Alkaline Phosphatase 76 Total Creatine Kinase < 20 L CK-MB (CK-2) TNP CK-MB (CK-2) Rel Index TNP Troponin I < 0.012 NT-Pro-B Natriuret Pep Total Protein 6.3 Albumin 3.2 L Globulin 3.1 Albumin/Globulin Ratio 1.0 Lipase 120 SARS-CoV-2 (PCR) Influenza A (RT-PCR) Influenza B (RT-PCR) RSV (PCR) 11/22/22 11/22/22 11/22/22 10:31 10:31 12:49 WBC RBC Hgb Hct MCV MCH MCHC RDW Plt Count Neut % (Auto) Lymph % (Auto) Refugio % (Auto) Eos % (Auto) Baso % (Auto) Neut # (Auto) Lymph # (Auto) Refugio # (Auto) Eos # (Auto) Baso # (Auto) PT INR APTT Sodium Potassium Chloride Carbon Dioxide BUN Creatinine Estimated GFR BUN/Creatinine Ratio Glucose Lactate 1.8 Calcium Magnesium Total Bilirubin AST ALT Alkaline Phosphatase Total Creatine Kinase CK-MB (CK-2) CK-MB (CK-2) Rel Index Troponin I NT-Pro-B Natriuret Pep 333 H Total Protein Albumin Globulin Albumin/Globulin Ratio Lipase SARS-CoV-2 (PCR) Negative Influenza A (RT-PCR) Flu a negative Influenza B (RT-PCR) Flu b negative RSV (PCR) Negative 11/22/22 14:00 WBC RBC Hgb Hct MCV MCH MCHC RDW Plt Count Neut % (Auto) Lymph % (Auto) Refugio % (Auto) Eos % (Auto) Baso % (Auto) Neut # (Auto) Lymph # (Auto) Refugio # (Auto) Eos # (Auto) Baso # (Auto) PT INR APTT Sodium Potassium Chloride Carbon Dioxide BUN Creatinine Estimated GFR BUN/Creatinine Ratio Glucose Lactate Calcium Magnesium Total Bilirubin AST ALT Alkaline Phosphatase Total Creatine Kinase CK-MB (CK-2) CK-MB (CK-2) Rel Index Troponin I < 0.012 NT-Pro-B Natriuret Pep Total Protein Albumin Globulin Albumin/Globulin Ratio Lipase SARS-CoV-2 (PCR) Influenza A (RT-PCR) Influenza B (RT-PCR) RSV (PCR) Assessment & Plan Assessment & Plan narrative: Carmen Spaulding will be observed overnight for monitoring of her 1st dose of apixaban. She does continue to have pneumonia and will be restarted on the previous antibiotics of IV cefepime, azithromycin and linezolid. Acute focal PE right lung, Wells score of 10 * CTA noted acute pulmonary embolus with interval enlargement in the in posterior basal segment of right lower lobe pulmonary artery * this is opposite side of her pleuritic chest pain and likely associated with pneumonia * She had been recommended for anticoagulation on apixaban by her production recorder and this will be resumed at 5 mg b.i.d., monitor overnight for cerebral edema Bilateral lower lobe pneumonia, likely gram negative, complication of recent influenza * She continues to have left pleuritic pain and appearance of the bilateral lower lobe consolidation on lung imaging, normal WBC and proactin probably not reliable in patient with active malignancy * recent admission to outside hospital for influenza but not noted to have pneumonia then, now at risk for MRSA pneumonia * immunocompromise on chronic steroids for her glioblastoma * patient developed itching and rash on upper extremities after Zosyn given in the ED on previous admission now noted in her allergy list * patient is not tachypneic and not requiring supplemental O2 * Lactate stable at 1.8 Chronic atrial fibrillation with RVR * previously not anticoagulated secondary to concerns for brain edema from glioblastoma * patient at baseline runs low on blood pressure and may not tolerate rate control agents, she had been discharged at outside hospital on Diltiazem 30 mg tid, will start in am if her blood pressure can support it. * eordered patient's home dilt * continue IVF for now due to soft BP * telemetry Pericardial effusion, appears to be stable * do not think this is clinically significant, noted on recent outside admission to have small pericardial effusion * echo at [facility] showed EF 50-55%, small pericardial effusion, no evidence of tamponade * echo from 01/2022 with normal EF, mild septal hypertrophy, severe biatrial dilatation, mild tricuspid regurgitation Left hemiparesis due to brain tumor * patient with frequent falls at home, per Oncology note on November 09 she has had clear neurological deterioration since early September with numbness and weakness on her left side, has left footdrop, and mostly dependent on wheelchair although does use her walker and has been falling * fall precautions in hospital * continue dexamethasone 2 mg q.day per home routine Glioblastoma * under care of Dr Kay at [facility] and also followed at , recently started on Avastin to help with vasogenic edema Hypokalemia, acute and present on admission * presenting potassium was 3.3, she was administered oral potassium 40 mEq X 1 History of seizures secondary to brain tumor * continue Keppra 1000 mg b.i.d. per home routine Advanced care planning * Patient wishes to remain a full code and wants to fight this cancer as hard as she can * She was referred to palliative care at [facility] who informed her she had only months to live and is not pursuing services from them * She was referred to [facility], will reach out to Dr. Javed and Rosa Castano, palliative care at [facility] * Advanced care planning time: 30 minutes VTE Prophylaxis: Wells risk score 10X Bilateral SCDs Patient is currently anticoagulated on apixaban. Patient is placed into observation as her stay is not expected to exceed 2 midnights. FEN: IV fluids: saline lock, diet: general, labs: CBC, C/BMP, liver enzymes, Mag, PT/INR Consultants None Dispo: probable discharge to home Code status: Full code as discussed with the patient who identifies her , Riley Robles as her surrogate and POA. [X] I have utilized all available immediate resources to obtain, update, or review of the patient's current medications VTE Deep Vein Thrombosis/Pulmonary Embolism Present on Admission: PE is present on admission MIPS - Admit I confirm the patient?s Advance Care Plan is present, Code status is documented, Surrogate decision maker is in patient?s record: Yes MIPS - DC The patient has current or prior documentation of left ventricular ejection fraction (LVEF) less than 40%, or moderate or severely depressed left ventricular systolic function.: No COVID-19 COVID-19 status: Negative Result date/Date tested (Pos, Neg/Pending): 11/22/22 Scores Wells' Criteria for PE Clinical signs and symptoms of DVT: Yes PE is #1 Dx or equally likely: Yes Heart rate > 100: No Immobilization at least 3 days or surg in previous 4 weeks: Yes History of PE or DVT: Yes Hemoptysis: No Malignancy w/Treatment within 6 months or palliative: Yes Wells' PE Score total: 10.0
[2022-11-22 22:01] LABS: Procalcitonin 0.09 ng/mL (<0.5)
[2022-11-22] MEDS: CEFEPIME 1 GM in SODIUM CHLORIDE 0.9% 100 ML IV (23:31)
[2022-11-22] MEDS: LINEZOLID 600 MG TABLET PO (23:31)
[2022-11-23] VITALS (13 sets, daily range): BP systolic 80–113; BP diastolic 56–76; PULSE 74–89; RESP 16–18; TEMP 35.7–36.3; O2SAT 95–100
[2022-11-23] MEDS: POTASSIUM CHLORIDE 20 MEQ TAB 40 MEQ PO (01:25)
[2022-11-23] MEDS: levETIRAcetam 250 MG TABLET 1000 MG PO ×2 (08:26→20:10)
[2022-11-23] MEDS: TRAMADOL 50 MG TABLET PO ×2 (08:26→20:09)
[2022-11-23] MEDS: AZITHROMYCIN 250 MG TABLET 500 MG PO (08:27)
[2022-11-23] MEDS: APIXABAN 5 MG TABLET PO ×2 (08:27→20:09)
[2022-11-23] MEDS: LINEZOLID 600 MG TABLET PO (08:27)
[2022-11-23] MEDS: dexAMETHasone 1 MG TABLET 2 MG PO (08:27)
[2022-11-23] MEDS: dilTIAZem 30 MG TABLET PO ×2 (08:27→14:45)
[2022-11-23] MEDS: CEFEPIME 1 GM in SODIUM CHLORIDE 0.9% 100 ML IV ×2 (08:53→20:11)
--- NOTE | 2022-11-23 11:49 | PT.IIE ---
Surgical History (Last Reviewed 11/22/22 @ 21:23 by DARIEL Nunes) Hx of craniotomy Medical History (Last Reviewed 11/22/22 @ 21:23 by DARIEL Nunes) Chronic atrial fibrillation with RVR Glioblastoma Seizure Physical Therapy Inpatient Evaluation/Re-Eval M1 PT/OT-IP Prior Functional Status Start: 11/23/22 13:10 Freq: NEEDED Status: Active Protocol: Document 11/23/22 11:49 AB (Rec: 11/23/22 13:31 AB [id number]) Medical Review Prior Functional Status Medical History Reviewed Yes Communication able to make needs known Mobility and Gait pt stated that she has brain CA and last month, they found a new tumor and has been requiring increase assistance at home since then. pt stated that her spouse assists her when he is around and her [id number] checks on her daily and helps her as much as possible but limited. pt stated that she has [facility] but they just started and that there is no scheduled that as of now when they come in and hours are random. pt stated that her spouse helps her with bed mobility, transfers and occasionally ambulated with 4WW with assistance. stated that she stays on her recliner most of the day and waits for somebody available to assist her to use the toilet but if there is nobody available, she waits on her recliner. Social History Household Members spouse Living Arrangements House Number of Floors (Floors) One Floor Number of Stairs To Enter/Railing? 1 step to enter Home Environment Standard Height Toilet,Tub/ Shower Home Equipment Front Wheel Walker,Four Wheel Walker,Manual Wheelchair,Grab Bars Near Toilet,Grab Bars In Shower Additional Social History Comment Has R side bed cane M2 PT-IP Current Condition Start: 11/23/22 13:10 Freq: NEEDED Status: Active Protocol: Document 11/23/22 11:49 AB (Rec: 11/23/22 13:31 AB [email or web address]) Physical Therapy Current Condition Current Condition Evaluation Date 11/23/22 Treatment Diagnosis syncope; PE; glioblastoma; difficulty in walking Onset Date 11/22/22 M3 PT-IP Subjective Start: 11/23/22 13:10 Freq: NEEDED Status: Active Protocol: Document 11/23/22 11:49 AB (Rec: 11/23/22 13:31 AB [email or web address]) Subjective Physical Therapy Visit Type Type Initial Evaluation Visit Start Time 11:49 Visit Stop Time 12:46 Total Visit Minutes 57 Number of LIABILITY ANALYST Visits 0 Physical Therapy Visit Comments Patient Comments agreeable to do PT M4 PT-IP Mobility and Gait Start: 11/23/22 13:10 Freq: NEEDED Status: Active Protocol: Document 11/23/22 11:49 AB (Rec: 11/23/22 13:31 AB [email or web address]) PT-Bed Mobility Assessment Supine to Sit Supine to Sit Maximum Assistance,Head of Bed Elevated,Bedrails Scooting Scooting to Edge of Bed Dependent PT-Transfer Assessment Sit to and From Stand Sit to and from Stand Maximum Assistance,2 Person Assistance,Use of Upper Extremities Equipment Transfer Assistive Device Gait Belt,Front Wheeled Walker Orthotic/Prosthetic Devices or Brace: No Transfers Transfer Destination Chair Transfer Technique Stand Step Pivot Transfer Ability Level of Assist 2 Person Assistance,Use of Upper Extremities Comments Mobility Comments pt supine in bed. stated that LUE/LE are numb and weak. BP in supine: 104/67. completed supine to sit max A and max cues. HOB elevated and used bed rail. presents with increase posterior trunk lean/ resistance with increase lateral head/trunk lean to the R requiring mod to max A for sitting balance on EOB and max cues for alignment. BP in sittin/72. completed sit to stand max A x 2 and max cues and required 2 attempts to stand. step transfer to chair max A using FWW max A x 2 and max cues. assisted LUE on FWW. pt sat on chair and positioned. BP checked: 99/67 . set up pt with lunch. call light and table placed within reach. Gait Assessment Comments Gait Comments unable at this time PT-Balance Assessment Sitting Balance and Reactions Static Sitting Balance Ability Poor Dynamic Sitting Balance Ability Poor Standing Balance and Reactions Static Standing Balance Ability Poor Dynamic Standing Balance Ability Poor M5 PT-IP Objective Assessments Start: 11/23/22 13:10 Freq: NEEDED Status: Active Protocol: Document 11/23/22 11:49 AB (Rec: 11/23/22 13:31 AB [id number]) Orientation Orientation/Cognition Level of Alertness Alert Orientation Name Safety Awareness Decreased Safety Awareness Memory Description No Deficits Noted Gross Range of Motion Lower Extremity ROM Assessment Within Functional Limits Strength Lower Extremity Strength Assessment Left Impaired Ankle 3+/5 Sensation Assessment Sensation Gross Sensation Left UE Impaired,Left LE Impaired Sensation Description Numbness Comments Sensation Comments c/o numbness on LUE/LE and stated that she can only feel ~ 2% Muscle Tone Muscle Tone WNL Yes M6 PT-IP Treatment Start: 11/23/22 13:10 Freq: NEEDED Status: Active Protocol: Document 11/23/22 11:49 AB (Rec: 11/23/22 13:31 AB [id number]) Physical Therapy Treatment Education Education Provided Safety M7 PT-IP Assessment and Plan Start: 11/23/22 13:10 Freq: NEEDED Status: Active Protocol: Document 11/23/22 11:49 AB (Rec: 11/23/22 13:31 AB [id number]) PT Summary Assessment and Plan Potential Rehabilitation Potential Fair Status of Condition at Evaluation Evolving Summary Impairments Pain,ROM,Strength,Balance, Coordination,Sensation,Tone, Cognition,Bed Mobility, Transfers,Gait,Activity Tolerance Assessment Summary pt requiring max A x 2 and max cues and unable to ambulate at this time. pt will require SNF rehab at this time. Pt has dx of glioblastoma and pt stated that they found a new tumor ~ 4 weeks ago. Pt stated that she needs more assistance at home. Goals Bed Mobility Goal Moderate Assistance Transfer Goal Moderate Assistance,Front Wheeled Walker Gait Goal Moderate Assistance,Front Wheel Walker Gait Distance 25 Other Goals improve bed mobility, transfers, ambulation using FWW 50 ft CGA up/down 1 step using FWW CGA Days to Meet Goals 10 Frequency of Treatment Frequency Of Treatment Once a Day Treatment Plan Physical Therapy Treatment Plan Bed Mobility Training,Transfer Training,Gait Training, Therapeutic Exercise,Balance Retraining,Discharge Planning, Hot or Cold Pack,Neuromuscular Re-ed,Coordination Retraining ,Manual Therapy Precautions Other Precautions falls Recommendations To Nursing Amount of Assist Needed 2 Person Assist Discharge Recommendations PT Discharge Recommendations SNF Rehab Transportation Needs at Discharge Wheelchair/Cabulance
--- NOTE | 2022-11-23 17:34 | P.PN_ITS ---
Subjective Subjective Date Patient Seen: 11/23/22 Time Patient Seen: 08:00 Interval history: She says she feels very weak. She is lightheaded when getting up. No new neurologic findings. No confusion. Exam Vital Signs (past 8 hours): - 11/23/22 12:34 11/23/22 12:23 11/23/22 14:45 Pulse Rate 89 85 Blood Pressure 104/64 Pulse Oximetry 95 Oxygen Delivery Method Room Air 11/23/22 16:08 Pulse Rate Blood Pressure Pulse Oximetry 96 Oxygen Delivery Method Room Air Oxygen Delivery Method Room Air Oxygen Flow Rate 0 Narrative Exam Narrative: Gen: no acute distress Resp: clear bilaterally CV: regular rate and rhythm, no murmurs Abd: soft, non-tender, Neuro: chronic left sided weakness Extremities: Weak, unable to move left side,negative Allyson?s sign Objective Labs Result Diagrams: 11/22/22 10:31 11/22/22 10:31 Labs: Laboratory Results - last 24 hr 11/22/22 14:00 Procalcitonin 0.09 PFSH Medical History Chronic atrial fibrillation with RVR Glioblastoma Seizure Surgical History Hx of craniotomy Family History Unknown Glioblastoma Brother Myocardial infarction Mother Congestive heart failure Father Congestive heart failure Social History household members: spouse Smoking Status: Never smoker Assessment & Plan Assessment & Plan narrative: 1. Pulmonary embolism * CTA noted acute pulmonary embolus with interval enlargement in the in posterior basal segment of right lower lobe pulmonary artery * this is opposite side of her pleuritic chest pain and likely associated with pneumonia * She had been recommended for anticoagulation on apixaban by her etl analyst developer and this will be resumed at 5 mg b.i.d., monitor overnight for cerebral edema Bilateral lower lobe pneumonia, likely gram negative, complication of recent influenza * She continues to have left pleuritic pain and appearance of the bilateral lower lobe consolidation on lung imaging * immunocompromise on chronic steroids for her glioblastoma * patient developed itching and rash on upper extremities after Zosyn given in [facility] ED on previous admission now noted in her allergy list * patient is not tachypneic and not requiring supplemental O2 * continue cefepime Chronic atrial fibrillation with RVR * previously not anticoagulated secondary to concerns for brain edema from glioblastoma * continue diltiazem Pericardial effusion, appears to be stable * do not think this is clinically significant, noted on recent outside admission to have small pericardial effusion * echo at [facility] showed EF 50-55%, small pericardial effusion, no evidence of tamponade * echo from 01/2022 with normal EF, mild septal hypertrophy, severe biatrial dilatation, mild tricuspid regurgitation Glioblastoma * under care of Dr Kay at [facility] and also followed at , recently started on Avastin to help with vasogenic edema * continue dexamethasone 2 mg q.day per home routine Hypokalemia, acute and present on admission * presenting potassium was 3.3, she was administered oral potassium 40 mEq X 1 History of seizures secondary to brain tumor * continue Keppra 1000 mg b.i.d. per home routine Weakness and dizziness -ordered PT evaluation -check orthostatic COVID-19 COVID-19 status: Negative Result date/Date tested (Pos, Neg/Pending): 11/22/22 Time Spent With Patient Critical Care time: I spent a total of [] minutes of critical care time on this patient's care today; this time is exclusive of procedural time.
[2022-11-24] VITALS (11 sets, daily range): BP systolic 46–115; BP diastolic 26–73; PULSE 60–101; RESP 16; TEMP 35.8–36.5; O2SAT 95–98
[2022-11-24] MEDS: APIXABAN 5 MG TABLET PO (08:51)
[2022-11-24] MEDS: levETIRAcetam 250 MG TABLET 1000 MG PO (08:51)
[2022-11-24] MEDS: AZITHROMYCIN 250 MG TABLET 500 MG PO (08:52)
[2022-11-24] MEDS: dilTIAZem 30 MG TABLET PO ×2 (08:52→15:19)
[2022-11-24] MEDS: dexAMETHasone 1 MG TABLET 2 MG PO (08:56)
[2022-11-24] MEDS: CEFEPIME 1 GM in SODIUM CHLORIDE 0.9% 100 ML IV (09:00)
[2022-11-24] MEDS: SENNOSIDES 8.6 MG TABLET 17.2 MG PO (09:14)
--- NOTE | 2022-11-24 11:40 | PT.IPTN ---
Physical Therapy Treatment Note M2 PT-IP Current Condition Start: 11/23/22 13:10 Freq: NEEDED Status: Active Protocol: Document 11/23/22 11:49 AB (Rec: 11/23/22 13:31 AB [id number]) Physical Therapy Current Condition Current Condition Evaluation Date 11/23/22 Treatment Diagnosis syncope; PE; glioblastoma; difficulty in walking Onset Date 11/22/22 M3 PT-IP Subjective Start: 11/23/22 13:10 Freq: NEEDED Status: Active Protocol: Document 11/24/22 11:01 LJ (Rec: 11/24/22 11:40 LJ [id number]) Subjective Physical Therapy Visit Type Type Treatment Note Visit Start Time 10:26 Visit Stop Time 10:52 Total Visit Minutes 26 Number of DIRECTOR OF COMMUNITY CENTER Visits 1 Physical Therapy Visit Comments Patient Comments agreeable to do PT M4 PT-IP Mobility and Gait Start: 11/23/22 13:10 Freq: NEEDED Status: Active Protocol: Document 11/24/22 11:01 LJ (Rec: 11/24/22 11:40 [id number]) PT-Bed Mobility Assessment Supine to Sit Supine to Sit Maximum Assistance,2 Person Assistance,Head of Bed Elevated,Bedrails Sit to Supine Sit to Supine Moderate Assistance,1 Person Assistance,Head of Bed Elevated Scooting Scooting to Edge of Bed Maximum Assistance Scooting Up and Down in Bed Dependent PT-Transfer Assessment Sit to and From Stand Sit to and from Stand Moderate Assistance,2 Person Assistance,Use of Upper Extremities Equipment Transfer Assistive Device Gait Belt,Front Wheeled Walker Transfers Transfer Destination Bed Transfer Ability Level of Assist 2 Person Assistance,Use of Upper Extremities Comments Mobility Comments Pt supine again stating her LLE is painful. Feels like burning and pins and needles. BP in supine 96/66. With HOB elevated pt completed supine> sit MaxA x1 and max cues. Assist with LLE off side of bed. MaxA x2 for LS to seated on side of bed. Pt required ModA initially for sitting upright on side of bed. Retropulsion push. Pt able to use bed cane to stable self in sitting with right UE. BP in sitting 94/66. Pt sat on side of bed CGA for 5 min. Sit> stand ModA x2. Pt stood for roughly 2 min. BP initially 80 /46. Pt unsymptomatic. Stood for 2 more minutes and practiced lifting LEs several times. BP at 46/26 unsymptomatic. Pt sat back on bed for several minutes again and BP 92/66. Pt stood again for CHURCH ADMINISTRATOR to change bed pad. This time pt required CGA to transfer sit<>stand. Pt assisted MaxA x1 for sitting to SL HOB elevated. MaxA for SL to supine. Brief was changed and pt able to offweight buttocks but unable to clear it to adjust briefs. BP in reclined position 89/90. Nursing notified about all BPs taken. Pt unsyptomatic with BP changes. Pt was repositioned in bed to offload painful L hip and pillow placed between legs. Left pt in bed with all needs within reach. Gait Assessment Comments Gait Comments unable at this time PT-Balance Assessment Sitting Balance and Reactions Static Sitting Balance Ability Fair Dynamic Sitting Balance Ability Poor Standing Balance and Reactions Static Standing Balance Ability Poor Dynamic Standing Balance Ability Poor M5 PT-IP Objective Assessments Start: 11/23/22 13:10 Freq: NEEDED Status: Active Protocol: Document 11/23/22 11:49 AB (Rec: 11/23/22 13:31 AB [id number]) Orientation Orientation/Cognition Level of Alertness Alert Orientation Name Safety Awareness Decreased Safety Awareness Memory Description No Deficits Noted Gross Range of Motion Lower Extremity ROM Assessment Within Functional Limits Strength Lower Extremity Strength Assessment Left Impaired Ankle 3+/5 Sensation Assessment Sensation Gross Sensation Left UE Impaired,Left LE Impaired Sensation Description Numbness Comments Sensation Comments c/o numbness on LUE/LE and stated that she can only feel ~ 2% Muscle Tone Muscle Tone WNL Yes M6 PT-IP Treatment Start: 11/23/22 13:10 Freq: NEEDED Status: Active Protocol: Document 11/24/22 11:01 SHADI (Rec: 11/24/22 11:40 [id number]) Physical Therapy Treatment Exercises Exercises Ankle Pumps,Gluteal Sets,Quad Sets,Heel Slides Education Education Provided Safety Other Treatments Other Treatment Performed bridging M7 PT-IP Assessment and Plan Start: 11/23/22 13:10 Freq: NEEDED Status: Active Protocol: Document 11/24/22 11:01 SHADI (Rec: 11/24/22 11:40 [id number]) PT Summary Assessment and Plan Potential Rehabilitation Potential Fair Status of Condition at Evaluation Evolving Summary Impairments Pain,ROM,Strength,Balance, Coordination,Sensation,Tone, Cognition,Bed Mobility, Transfers,Gait,Activity Tolerance Assessment Summary Pt requiring MaxA-ModA x1-2 for bed mobility, ModA x2 for first sit>stand then CGA for second standing to change bed pad. While seated on side of bed, pt was able to hold up her trunk with hands on bed CGA-SBA. BP fluctuations unsymptomatic. Pt is unable to use LUE on FWW and needs assist to maintain its position on walker. Pt able to lift both LEs for gait to chair but, due to BP drop was instructed to remain at bedside. Pt will require SNF to improve strength prior to be able to returning home Goals Bed Mobility Goal Moderate Assistance Transfer Goal Moderate Assistance,Front Wheeled Walker Gait Goal Moderate Assistance,Front Wheel Walker Gait Distance 25 Other Goals improve bed mobility, transfers, ambulation using FWW 50 ft CGA up/down 1 step using FWW CGA Days to Meet Goals 10 Frequency of Treatment Frequency Of Treatment Once a Day Treatment Plan Physical Therapy Treatment Plan Bed Mobility Training,Transfer Training,Gait Training, Therapeutic Exercise,Balance Retraining,Discharge Planning, Hot or Cold Pack,Neuromuscular Re-ed,Coordination Retraining ,Manual Therapy Precautions Other Precautions falls Recommendations To Nursing Amount of Assist Needed 2 Person Assist Discharge Recommendations PT Discharge Recommendations SNF Rehab Transportation Needs at Discharge Wheelchair/Cabulance
--- NOTE | 2022-11-24 11:49 | P.DS_ITS ---
History of Present Illness History of Present Illness Date Patient Seen: 11/22/22 Time Patient Seen: 20:45 Chief complaint: syncope Narrative: Per admitting provider: Shaye Spaulding is a pleasant but unfortunate 62 y.o. female with known chronic atrial fibrillation recent influenza and pneumonia, glioblastoma who has received chemotherapy, radiation and is currently on round 4 of 5 of Avastatin.? She is also on dexamethasone and Keppra as well as recent pulmonary emboli on the left focal acute pulmonary embolus at the posterior basal segment of the right lower lobe pulmonary artery diagnosed on 11/12/2022.? Patient was started on Eliquis about 3 days ago at 5 mg p.o. b.i.d. by her recreation professor for her pulmonary emboli she had been seen and hospitalized here at [facility] but was not started due to concerns for angioedema and concern for cerebral bl eeding. She was just discharged on November 14. She re-presented today with nausea, shortness of breath, left-sided chest and rib pain and profound weakness requiring that her fully assist to and from the bathroom. She denies vomiting, cough, dysuria, diarrhea or constipation. She states that her left side is completely numb and with no strength. CT of the head ordered in the emergency department indicated no interval changes. CT of the chest and abdomen did report increased pulmonary emboli involving both lateral and anterior segmental arteries of the right middle lobe and increased consolidation in the left lower lung. She is afebrile, blood pressure 93/63 heart rate 85 respiratory rate 16 oxygen saturation of 99% on room air she weighs 54.4 kg with a BMI of just under 19. She is mildly anemic with a hemoglobin and hematocrit of 11.5 and 34 platelet count 135 potassium is 3.3 calcium 7.9 albumin is 3.2 flu panel and COVID-19 PCR are all negative. Family history is notable for cousin having a glioblastoma, both parents from congestive heart failure, mother at age 69 father age 90, brother age 64 of an [facility]. Discharge Providers Provider Date of admission: 11/22/22 16:07 Discharge Date: 11/24/22 Primary care physician: Hola Larson MD Consults: 11/23/22 11:46 Consult to Physical Therapy Evaluate & Treat Comment: Physician Instructions: Evaluate and Treat Discharge provider: Jorudan Cui MD Summary Hospital Course Discharge Diagnosis: 1. Pulmonary embolism 2. Pneumonia 3. Chronic atrial fibrillation 4. Chronic pericardial effusion 5. Glioblastoma 6. Hypokalemia 7. History of seizures secondary to GBM 8. 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 Spaulding was admitted to monitor her after ED visit found that she had worsening pulmonary embolism. She has known GBM with vasogenic edema and has increased risk of intracranial bleeding and catastrophic outcome. I did discuss at length with her the difficulty of her situation with risk of not treating PE and risk of intracranial bleed. Ultimately she was agreeable to trial eliquis, and she was monitored and had no changes in her neurologic status. She had infiltrates on chest xray, possible pneumonia, and was treated with antibiotics but ultimately was not requiring oxygen. She did have an episode of orthostatic hypotension which resolved with fluid bolus. She is quite deconditioned and was offered attempt at SNF placement, but after discussion with her she ultimately declined and preferred to go home. Her was reportedly angry per nursing staff, but I did discuss the option of placement with him as well and he also preferred to take her home. Exam Vital Signs (past 8 hours): Oxygen Delivery Method Room Air Oxygen Flow Rate 0 Narrative Exam Narrative: Gen: no acute distress Resp: clear bilaterally CV: regular rate and rhythm, no murmurs Abd: soft, non-tender, Neuro: chronic left sided weakness Extremities: Weak, unable to move left side,negative Allyson?s sign Objective Labs Result Diagrams: 11/22/22 10:31 11/22/22 10:31 [facility] Medical History Chronic atrial fibrillation with RVR Glioblastoma Seizure Surgical History Hx of craniotomy Family History Unknown Glioblastoma Brother Myocardial infarction Mother Congestive heart failure Father Congestive heart failure Social History household members: spouse Smoking Status: Never smoker Discharge Plan Discharge Plan Patient Disposition: Home Health Service Provider Discharge Comment: Ms. Spaulding came in to the hospital for a pulmonary embolism. She did well on eliquis. She will be discharged with a few more days of antibiotics for pneumonia. She was offered attempt to place in alf but decided to try going home. She will meet with hospice this coming week. Discharge orders & Medications Prescriptions: New azithromycin [Zithromax Z-Rashad] 250 mg Tablet 500 mg PO DAILY Qty: 4 0RF Continued DILTIAZEM HCL (Diltzac ER) 30 mg PO QPM Qty: 0 dexamethasone 2 mg tablet 2 mg PO DAILY Label Comments: TAKE ONE TABLET BY MOUTH ONE TIME DAILY levetiracetam 1,000 mg tablet 1,000 mg PO BID Label Comments: TAKE ONE TABLET BY MOUTH TWICE DAILY tramadol 50 mg Tablet 50 mg PO TID PRN (Reason: Pain, Moderate (4-6)) Qty: 30 0RF lidocaine 5 % Adhesive Patch,Medicated 1 patch topical DAILY Qty: 30 0RF Eliquis 5 mg tablet 5 mg PO BID Qty: 60 0RF Label Comments: TAKE ONE TABLET BY MOUTH TWICE DAILY Follow up/Referrals: Hola Larson MD [Primary Care Provider] - Diet/Activity/Treatments Diet: Regular Visit Report/Discharge Packet Instructions: Pulmonary Embolism, Pneumonia-Adult, DI for Pneumonia -- Adult, DI for Pulmonary Embolism Discharge Data Primary Care Provider: Hola Larson Attending Provider: Rigoberto Maynard
[2022-11-24] MEDS: SODIUM CHLORIDE 0.9% 1,000 ML 999 ML IV (12:20)
--- NOTE | 2022-11-24 14:21 | CM.DANOTE ---
Initial DCP Assessment Note Pt is a 62 yo female, resident of [place]; presents with nausea, shortness of breath, left-sided chest and rib pain and profound weakness PMH includes chronic afib, recent flu and pneumonia ([facility]) with known brain CA, hx of craniotomy, chemo and radiation with new tumor found a month ago PCP: Hola Larson Oncologist: Dr Kay Payer: Pernell/JAYANT Reviewed chart,met w/patient at bedside and had lengthy conversation. Discussed Dispo options and conducted a goals of care conversation. PT currently recommending SNF. Patient's left side is numb which patient describes as being from the brain swelling. According to patient, Dr Kay, oncologist has said this sx is likely permanent. Patient admittedly in poor spirits today. 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 Patient lives w/her new spouse of 5 years. Patient has no children, has a niece she is close with that lives in [place] Patient tells this RAILROAD BRAKEMAN she is really hoping for more time with her new and her family. Patient does not feel ready to and is scared to accept Hospice care because she doesn't want to give up Discussed the reality of her known disease, discussed the likelihood that patient would continue to decline functionally and mentally and strongly encouraged her to consider quality of life instead of quantity. Patient admits she did not tolerate chemo and will not get additional radiation. Discussed the potential barrier of Insurer Pernell SABA to securing SNF, encouraged patient to consider home w/spouse, if he can get time off work, w/either resumption of [facility] vs Hospice services (hospital bed would be helpful either way) Patient told this RAILROAD BRAKEMAN she would need to discuss with her (Riley, on his way from [facility] CM team will plan to follow closely for coordination of the safest DCP available to patient. Need to f/u with patient and spouse DANYELL Dickinson Discharge Planning/Care Management CM Discharge Assessment Start: 11/24/22 14:13 Freq: Status: Active Protocol: Document 11/24/22 14:13 NESSA (Rec: 11/24/22 14:21 NESSA [id number]) Discharge Planning Assessment Assigned [place] [employer] DANYELL Sifuentes DPOA/Assigned Designee Name Riley Robles, spouse Contact Information [phone] Advance Directives? No Prior Living Arrangements House Household Members spouse Type of transporation used prior to Drives own vehicle admit Independent with ADL's No Is patient alert and oriented? Yes Needs Assistance With Bathing,Grooming,Meal Prep, Toileting,Managing Medications ,Home Chores / Shopping Comment Patient states she needs some assist with everything since her left side became numb ( attributed to brain swelling per patient and record) Comment Home w/spouse, HH vs Hospice vs SNF (Pernell SABA) Barriers to Discharge Yes Transportation Arrangement TBD Additional Comment Awaiting patient's decision re DCP. PT recommends SNF Whiteboard Updated in Patient Room with No name and ext. # of [place] [employer] Comment Card w/DANYELL desk contact provided to patient per her request
--- NOTE | 2022-11-24 15:19 | PC.NURSE ---
Day shift: Ok to give Diltiazem at this time per Dr Bunch.
--- NOTE | 2022-11-24 18:42 | PC.NURSE ---
Day shift: Pt left unit via WC at approx 1830. Taken to car by CHRISTY Bahena. Spouse in room for d/c teachings. Spouse upset that Pt was not completely ready to go. Pt tearful. aesthetics instructor Carmen went over paperwork with Pt and her Spouse. Pt has all personal belongings. MD scripts given to Pt. Pt will contact or be contacted by TARIK Carpio tomorrow for any questions that were not answered today. Paperwork signed and all questions answered.
== END 2022-11-24 18:49 | disposition home health service (06) ==
LOC: ED 15:46 → AC 16:08
PROVIDERS: Nurse Practitioner Family; Admitting Provider Internal Medicine; Emergency Provider Emergency Medicine; PCP Internal Medicine; Referring Provider Emergency Medicine; Visit Provider Internal Medicine
DX: R55 Syncope and collapse (principal); R07.9 Chest pain, unspecified; I48.20 Chronic atrial fibrillation, unspecified; I26.99 Other pulmonary embolism without acute cor pulmonale; I31.39 Other pericardial effusion (noninflammatory); E87.6 Hypokalemia; C71.9 Malignant neoplasm of brain, unspecified; D64.9 Anemia, unspecified; J18.1 Lobar pneumonia, unspecified organism; G81.94 Hemiplegia, unspecified affecting left nondominant side; G40.89 Other seizures; Z20.822 Contact with and (suspected) exposure to COVID-19
CPT/HCPCS: 0241U; 70450; 71045; 71275; 80053; 81003; 82550; 83605; 83690; 83735; 83880; 84145; 84484; 85025; 85610; 85730; 87040; 93005; 96365; 96366; 97163; 97530; 99285; G0378; J0692; Q9967